=== PATIENT | female | born 1995 | race Two or more races ===

== ENCOUNTER 2017-11-28 10:01 | Emergency (ER) | payer SELFPAY ==
[~2017-11-28] VITALS: Ht 157.5 cm; Wt 59.4 kg
[~2017-11-28 10:01] MED LIST: FAMO-63 PO; NITR100C62 PO; ONDA8TAB12 PO
[2017-11-28 10:25] VITALS: BP 157/102
[2017-11-28 11:01] LABS: BASO # 0.1 x10^3/uL (0.0-0.2); BASO % 1 % (0-3); EOS # 0.1 x10^3/uL (0.0-0.7); EOS % 1 % (0-3); HEMOGLOBIN 13.4 g/dL (12.0-15.5); LYMPH % 15 % (24-48); MEAN CORPUSCULAR HEMOGLOBIN 28 pg (25-35); MEAN CORPUSCULAR HGB CONC 33 g/dL (31-37); MEAN CORPUSCULAR VOLUME 84 fL (79-100); MONO # 0.5 x10^3/uL (0.0-1.1); MONO % 8 % (0-9); NEUT % 75 % (31-73); PLATELET COUNT 254 x10^3/uL (140-400); RED BLOOD COUNT 4.87 x10^6/uL (3.50-5.40); RED CELL DISTRIBUTION WIDTH 15.3 % (11.5-14.5); WHITE BLOOD COUNT 6.6 x10^3/uL (4.0-11.0)
[2017-11-28 11:12] LABS: ALBUMIN 3.9 g/dL (3.4-5.0); CALCIUM 9.1 mg/dL (8.5-10.1); GFR 69.3; POTASSIUM 3.8 mmol/L (3.5-5.1); TOTAL BILIRUBIN 1.7 mg/dL (0.2-1.0); TOTAL PROTEIN 7.9 g/dL (6.4-8.2)
[2017-11-28 11:23] LABS: BARBITURATES NEG (NEG); BENZODIAZEPINES NEG (NEG); CANNABINOIDS POS (NEG); COCAINE NEG (NEG); METHADONE NEG (NEG); OPIATES NEG (NEG); PHENCYCLIDINE NEG (NEG)
[2017-11-28 11:24] LABS: AMPHETAMINE/METHAMPHETAMINE NEG (NEG)
[2017-11-28 11:25] LABS: BILIRUBIN,URINE NEG (NEG); CLARITY,URINE CLOUDY; COLOR,URINE YELLOW; GLUCOSE,URINE NEG (NEG); NITRITE,URINE POS (NEG); UROBILINOGEN,URINE 0.2 mg/dL (0.2 mg/dL)
[2017-11-28] MEDS ORDERED: ACETAMINOPHEN 500 MG TABLET PO ONE (11:30)
--- NOTE | 2017-11-28 12:28 | RAD ---
Examination: Ultrasound abdomen complete HISTORY: History of upper abdominal pain, nausea, vomiting COMPARISON: None available FINDINGS: The visualized pancreas grossly appears unremarkable. The right lobe of the liver measures 13.2 cm. There is mild thickened appearance of the gallbladder wall probably due to contracted appearance. The gallbladder is contracted as patient ate recently. No evidence of gallstones. No ultrasonographic evidence of Canela's sign. The common bile duct measures 3.1 mm in diameter. The right kidney measures 9.5 cm in length. Multiple cysts identified in the right kidney the largest measuring 1.8 cm. The 1.4 cm cystic structure in the right kidney demonstrates few echogenicities within probably debris. The left kidney measures 12.1 cm in length. The visualized spleen, aorta, IVC is within normal limits. IMPRESSION: 1. No evidence of gallstones. There is somewhat thickened appearance of the gallbladder wall probably due to contracted appearance the gallbladder due to recent non NPO status. 2. Cystic structures identified in the right kidney the largest measuring 1.8 cm likely cyst. The 1.4 cm cystic structure demonstrates echogenicity within probably debris within the cyst. Close interval follow-up examination is recommended to document stability. Electronically signed by: Ace Pretty MD (11/28/2017 12:25 PM) [id number]
[2017-11-28] MEDS ORDERED: RANI150T21 PO (12:35)
[2017-11-28] MEDS ORDERED: CIPR250T30 PO (12:35)
--- NOTE | 2017-11-28 12:35 | PHYS DOC ---
Past History Past Medical History: Hypertension Past Surgical History: No Surgical History Alcohol Use: Rarely Drug Use: Marijuana Adult General Chief Complaint Chief Complaint: ABDOMINAL PAIN HPI HPI Patient is a 22 year old female who presents with complaining of intermittent episodes of abdominal pain for 17 months after she had her baby in June 2016. She states she did 2 or 3 episodes of upper abdominal pain each month that usually last for couple hours and associated with nausea and sometimes vomiting. Patient states the pain is not related to food or activity. Patient states she had 1 episodes of vomiting today with string of fresh blood that was new for her. Patient denies , urinary symptoms, fever and chills, loss of weight. Review of Systems Review of Systems Constitutional: Denies fever or chills [] Eyes: Denies change in visual acuity, redness, or eye pain [] HENT: Denies nasal congestion or sore throat [] Respiratory: Denies cough or shortness of breath [] Cardiovascular: No additional information not addressed in HPI [] GI: Reports abdominal pain, nausea, vomiting, denies bloody stools or diarrhea [ ] : Denies dysuria or hematuria [] Musculoskeletal: Denies back pain or joint pain [] Integument: Denies rash or skin lesions [] Neurologic: Denies headache, focal weakness or sensory changes [] Endocrine: Denies polyuria or polydipsia [] All other systems were reviewed and found to be within normal limits, except as documented in this note. Current Medications Current Medications Current Medications Medications (Trade) Dose Ordered Sig/Holly Start Time Stop Time Status Last Admin Dose Admin Acetaminophen (Tylenol) 1,000 mg 1X ONCE 11/28/17 11:30 11/28/17 11:31 DC 11/28/17 11:20 1,000 MG Allergies Allergies Allergies Coded Allergies Type Severity Reaction Last Updated Verified No Known Allergies Allergy Unknown 10/19/15 Yes Physical Exam Physical Exam Constitutional: Well developed, well nourished, no acute distress, non-toxic appearance. [] HENT: Normocephalic, atraumatic, bilateral external ears normal, oropharynx moist, no oral exudates, nose normal. [] Eyes: PERRLA, EOMI, conjunctiva normal, no discharge. [] Neck: Normal range of motion, no tenderness, supple, no stridor. [] Cardiovascular:Heart rate regular rhythm, no murmur [] Lungs & Thorax: Bilateral breath sounds clear to auscultation [] Abdomen: Bowel sounds normal, soft, no tenderness, no masses, no pulsatile masses. [] Skin: Warm, dry, no erythema, no rash. [] Back: No tenderness, no CVA tenderness. [] Extremities: No tenderness, no cyanosis, no clubbing, ROM intact, no edema. [] Neurologic: Alert and oriented X 3, normal motor function, normal sensory function, no focal deficits noted. [] Psychologic: Affect normal, judgement normal, mood normal. [] Current Patient Data Vital Signs Vital Signs Date Time Temp Pulse Resp B/P (MAP) Pulse Ox O2 Delivery O2 Flow Rate FiO2 11/28/17 10:25 98.3 109 16 97 Room Air Lab Results Laboratory Tests Test 11/28/17 10:07 11/28/17 10:09 11/28/17 10:30 11/28/17 10:47 Urine Collection Type Unknown Urine Color Yellow Urine Clarity Cloudy Urine pH 6.0 Urine Specific [place] >=1.030 Urine Protein 100 mg/dl (NEG-TRACE) Urine Glucose (UA) Neg mg/dL (NEG) Urine Ketones (Stick) Neg mg/dL (NEG) Urine Blood Mod (NEG) Urine Nitrite Pos (NEG) Urine Bilirubin Neg (NEG) Urine Urobilinogen Dipstick 0.2 mg/dL (0.2 mg/dL) Urine Leukocyte Esterase Small (NEG) POC Urine HCG, Qualitative hcg negative (Negative) Urine Opiates Screen Neg (NEG) Urine Methadone Screen Neg (NEG) Urine Barbiturates Neg (NEG) Urine Phencyclidine Screen Neg (NEG) Urine Amphetamine/Methamphetamine Neg (NEG) Urine Benzodiazepines Screen Neg (NEG) Urine Cocaine Screen Neg (NEG) Urine Cannabinoids Screen Pos (NEG) Urine Ethyl Alcohol Neg (NEG) White Blood Count 6.6 x10^3/uL (4.0-11.0) Red Blood Count 4.87 x10^6/uL (3.50-5.40) Hemoglobin 13.4 g/dL (12.0-15.5) Hematocrit 41.0 % (36.0-47.0) Mean Corpuscular Volume 84 fL (79-100) Mean Corpuscular Hemoglobin 28 pg (25-35) Mean Corpuscular Hemoglobin Concent 33 g/dL (31-37) Red Cell Distribution Width 15.3 % (11.5-14.5) H Platelet Count 254 x10^3/uL (140-400) Neutrophils (%) (Auto) 75 % (31-73) H Lymphocytes (%) (Auto) 15 % (24-48) L Monocytes (%) (Auto) 8 % (0-9) Eosinophils (%) (Auto) 1 % (0-3) Basophils (%) (Auto) 1 % (0-3) Neutrophils # (Auto) 5.0 x10^3uL (1.8-7.7) Lymphocytes # (Auto) 1.0 x10^3/uL (1.0-4.8) Monocytes # (Auto) 0.5 x10^3/uL (0.0-1.1) Eosinophils # (Auto) 0.1 x10^3/uL (0.0-0.7) Basophils # (Auto) 0.1 x10^3/uL (0.0-0.2) Sodium Level 142 mmol/L (136-145) Potassium Level 3.8 mmol/L (3.5-5.1) Chloride Level 105 mmol/L (98-107) Carbon Dioxide Level 31 mmol/L (21-32) Anion Gap 6 (6-14) Blood Urea Nitrogen 13 mg/dL (7-20) Creatinine 1.0 mg/dL (0.6-1.0) Estimated GFR (Cockcroft-Gault) 69.3 BUN/Creatinine Ratio 13 (6-20) Glucose Level 45 mg/dL (70-99) L Calcium Level 9.1 mg/dL (8.5-10.1) Total Bilirubin 1.7 mg/dL (0.2-1.0) H Aspartate Amino Transferase (AST) 18 U/L (15-37) Alanine Aminotransferase (ALT) 22 U/L (14-59) Alkaline Phosphatase 78 U/L (46-116) Total Protein 7.9 g/dL (6.4-8.2) Albumin 3.9 g/dL (3.4-5.0) Albumin/Globulin Ratio 1.0 (1.0-1.7) Lipase 130 U/L (73-393) EKG EKG [] Radiology/Procedures Radiology/Procedures [] Course & Med Decision Making Course & Med Decision Making Pertinent Labs and Imaging studies reviewed. (See chart for details) discharge: I've spoken with the patient and/or caregivers. I've explained the patient's condition, diagnosis and treatment plan based on information available to me at this time. I've answered the patient's and/or caregivers questions and addressed any concerns. The patient and/or caregivers have a good understanding the patient's diagnosis, condition and treatment plan as can be expected at this point. Vital signs have been stabilized. The patient's condition is stable for discharge from the emergency department. The patient will pursue further outpatient evaluation with her primary care provider or other designated consulting physician as outlined in the discharge instructions. Patient and/or caregivers are agreeable to this plan of care and follow-up instructions have been explained in detail. The patient and/or caregivers have received these instructions in written format and expressed understanding of these discharge instructions. The patient and her caregivers are aware that if any significant change in condition or worsening of symptoms should prompt him to immediately return to this of the closest emergency department. If an emergent department is not readily available I would encourage him to call 911. Dragon Disclaimer Dragon Disclaimer This electronic medical record was generated, in whole or in part, using a voice recognition dictation system. Departure Departure: Impression: Primary Impression: Chronic abdominal pain Additional Impressions: UTI (urinary tract infection) Kidney cysts Disposition: HOME, SELF-CARE (at 12:30) Condition: STABLE Referrals: PCP,NO (PCP) RADHA AGUILERA Patient Instructions: Abdominal Pain, Urinary Tract Infection Additional Instructions: Drink plenty of liquids Follow-up with your primary care physician in 3-5 days Return to ER if not getting better Lap with urology physician in 2 or 3 days Scripts Ranitidine Hcl (ZANTAC) 150 Mg Tablet 1 TAB PO BID, #20 TAB 0 Refills Prov: SHAUN CROFT MD 11/28/17 Ciprofloxacin Hcl (CIPRO) 250 Mg Tablet 1 TAB PO BID, #6 TAB Prov: SHAUN CROFT MD 11/28/17 Problem Qualifiers SHAUN CROFT MD Nov 28, 2017 12:35
== END 2017-11-28 12:42 | disposition home or self-care (01) ==
LOC: ER 10:01
DX: N39.0 Urinary tract infection, site not specified (principal); G89.29 Other chronic pain; R10.10 Upper abdominal pain, unspecified; N28.1 Cyst of kidney, acquired; I10 Essential (primary) hypertension
CPT/HCPCS: 36415; 76700; 80053; 80307; 81003; 81025; 83690; 85025; 87086; 87186; 99285-25; G0479

== ENCOUNTER 2018-07-24 08:44 | Emergency (ER) | payer MEDICAID, OTHER ==
[~2018-07-24] VITALS: Ht 157.5 cm; Wt 59.4 kg
[~2018-07-24 08:44] MED LIST changes: +CIPR250T30 PO; +RANI150T21 PO
--- NOTE | 2018-07-24 09:28 | PHYS DOC ---
Past History Past Medical History: Hypertension Past Surgical History: No Surgical History Alcohol Use: Rarely Drug Use: Marijuana Adult General Chief Complaint Chief Complaint: BREAST PROBLEM HPI HPI Patient is a 22 year old female who presents with complaint of a lump to the left breast. Patient states that she noticed a lump 2 days ago. Denies any associated pain, swelling, redness, or rash. Patient not currently breast- feeding. Denies previous history of similar symptoms. States that the lump is about the size of her fingertip and is hard to touch. States it is mobile. Has not taking medications. Patient states that she made a doctor's appointment to be seen next week but states that she wanted to have this evaluated today which is why she came to the emergency department. No associated fever. Denies family history of breast cancer. Review of Systems Review of Systems Constitutional: Denies fever or chills [] Eyes: Denies change in visual acuity, redness, or eye pain [] HENT: Denies nasal congestion or sore throat [] Respiratory: Denies cough or shortness of breath [] Cardiovascular: Denies chest pain or edema[] GI: Denies abdominal pain, nausea, vomiting, bloody stools or diarrhea [] : Left breast mass, denies dysuria or hematuria [] Musculoskeletal: Denies back pain or joint pain [] Integument: Denies rash or skin lesions [] Neurologic: Denies headache, focal weakness or sensory changes [] Endocrine: Denies polyuria or polydipsia [] All other systems were reviewed and found to be within normal limits, except as documented in this note. Allergies Allergies Allergies Coded Allergies Type Severity Reaction Last Updated Verified No Known Allergies Allergy Unknown 10/19/15 Yes Physical Exam Physical Exam Constitutional: Well developed, well nourished, no acute distress, non-toxic appearance. [] HENT: Normocephalic, atraumatic, bilateral external ears normal, oropharynx moist, no oral exudates, nose normal. [] Eyes: PERRLA, EOMI, conjunctiva normal, no discharge. [] Neck: Normal range of motion, no tenderness, supple, no stridor. [] Cardiovascular:Heart rate regular rhythm, no murmur [] Lungs & Thorax: Bilateral breath sounds clear to auscultation Breast exam: Breasts appear symmetric, 1.5 cm nodular mass at 6 o'clock position of left aerial below nipple, nontender to palpation, no skin dimpling or erythema present, no palpable axillary lymphadenopathy.[] Abdomen: Bowel sounds normal, soft, no tenderness, no masses, no pulsatile masses. [] Skin: Warm, dry, no erythema, no rash. [] Back: No tenderness, no CVA tenderness. [] Extremities: No tenderness, no cyanosis, no clubbing, ROM intact, no edema. [] Neurologic: Alert and oriented X 3, normal motor function, normal sensory function, no focal deficits noted. [] Current Patient Data Vital Signs Blood pressure 146/112, pulse 84, SPO2 97% on room air. Lab Results Not performed EKG EKG Not performed[] Radiology/Procedures Radiology/Procedures Not performed[] Course & Med Decision Making Course & Med Decision Making Pertinent Labs and Imaging studies reviewed. (See chart for details) Patient has a small nodular breast mass. This may be an obstructed mammary duct or ductal cyst. This does not appear to be acutely infected and patient is otherwise in no acute distress. Recommended use of warm compresses to the affected area 3 times daily over the next 5 days. Advised to keep appointment with patient's doctor next week to have this reevaluated and to assess need for outpatient imaging such as breast ultrasound and/or mammography. Blood pressure was found to be elevated in the emergency department. This is likely due to st ress reaction the patient does have documented history of hypertension. Advised to have this rechecked by primary doctor as patient is not currently having any active symptoms of critical hypertension. Advised return to the emergency department for any worsening symptoms. Patient was understanding and in agreement with treatment plan.[] Dragon Disclaimer Dragon Disclaimer This electronic medical record was generated, in whole or in part, using a voice recognition dictation system. Departure Departure: Impression: Primary Impression: Breast mass in female Disposition: 01 HOME, SELF-CARE Condition: STABLE Referrals: PCP,NO (PCP) Patient Instructions: Breast Self-Exam, [id number] Additional Instructions: Your examination today shows a small mass underneath the areola, or colored part, of your breast just below the nipple. This is thought to be due to a possible obstructed mammary duct. There does not appear to be any infection at this time. Apply warm compresses to the affected area 3 times a day for the next 5 days. If this does not resolve, it is recommended that you keep your appointment with your doctor as this may need to have further outpatient imaging. Return to the emergency department for any worsening symptoms. LINDA PEREZ MD July 24, 2018 09:28
[2018-07-24 09:35] VITALS: BP 146/112
== END 2018-07-24 09:35 | disposition home or self-care (01) ==
LOC: ER 08:44
DX: N63.42 Unspecified lump in left breast, subareolar (principal); I10 Essential (primary) hypertension
CPT/HCPCS: 99281

== ENCOUNTER 2018-08-10 15:44 | Emergency (ER) | payer OTHER ==
[~2018-08-10] VITALS: Ht 157.5 cm; Wt 59.4 kg
[~2018-08-10 15:44] MED LIST changes: +RANI-376 PO; -RANI150T21 PO
--- NOTE | 2018-08-10 16:36 | PHYS DOC ---
Past History Past Medical History: No Pertinent History Past Surgical History: No Surgical History Alcohol Use: Occasionally Drug Use: Marijuana Adult General Chief Complaint Chief Complaint: HEADACHE HPI HPI Patient is a 22-year-old female presents with right-sided headache, light sensitivity, and slightly blurred vision that started this morning. She has a history of similar headaches previously without any formal diagnosis for these. No relief with [id number] acetaminophen. She did have 2 episodes of nausea and vomiting this morning. No blood in the emesis. Denies any fever. Denies any chest pain. Not worst headache of life. Pain is moderate to severe in intensity. She also noted that her blood pressure was elevated with the discomfort. She does have a family history of high blood pressure. She has no personal history of blood pressure issues other than it "runs high."[] Review of Systems Review of Systems Constitutional: Denies fever or chills [] Eyes: Denies change in visual acuity, redness, or eye pain [] HENT: Denies nasal congestion or sore throat [] Respiratory: Denies cough or shortness of breath [] Cardiovascular: No chest pain or palpitations[] GI: Denies abdominal pain, nausea, vomiting, bloody stools or diarrhea [] : Denies dysuria or hematuria [] Musculoskeletal: Denies back pain or joint pain [] Integument: Denies rash or skin lesions [] Neurologic: Denies focal weakness or sensory changes [] Endocrine: Denies polyuria or polydipsia [] All other systems were reviewed and found to be within normal limits, except as documented in this note. Allergies Allergies Allergies Coded Allergies Type Severity Reaction Last Updated Verified No Known Allergies Allergy Unknown 10/19/15 Yes Physical Exam Physical Exam Constitutional: Well developed, well nourished, mild discomfort, non-toxic appearance. [] HENT: Normocephalic, atraumatic, bilateral external ears normal, oropharynx moist, no oral exudates, nose normal. [] Eyes: PERRLA, EOMI, conjunctiva normal, no discharge. [] Neck: Normal range of motion, no tenderness, supple, no stridor. [] Cardiovascular:Heart rate regular rhythm, no murmur [] Lungs & Thorax: Bilateral breath sounds clear to auscultation [] Abdomen: Not examined[] Skin: Warm, dry, no erythema, no rash. [] Back: No tenderness, no CVA tenderness. [] Extremities: No tenderness, no cyanosis, no clubbing, ROM intact, no edema. [] Neurologic: Alert and oriented X 3, normal motor function, normal sensory function, no focal deficits noted. Normal rapid repetitive and alternating movements, normal gait [] Psychologic: Affect normal, judgement normal, mood normal. [] Current Patient Data Vital Signs Vital Signs Date Time Temp Pulse Resp B/P (MAP) Pulse Ox O2 Delivery O2 Flow Rate FiO2 08/10/18 15:59 97.8 79 18 99 Room Air EKG EKG [] Radiology/Procedures Radiology/Procedures [] Course & Med Decision Making Course & Med Decision Making Pertinent Labs and Imaging studies reviewed. (See chart for details) ED course: Patient arrived, was placed in bed, and tolerated exam well. She achieved significant pain relief with the medications administered. She was discharged in improved condition with a diesel truck driver present. Medical decision-making: Believe this patient to have migraines. There is no evidence of meningitis, encephalitis, subarachnoid hemorrhage, or any other significant pathology.[] Dragon Disclaimer Dragon Disclaimer This electronic medical record was generated, in whole or in part, using a voice recognition dictation system. Departure Departure: Impression: Primary Impression: Headache Disposition: HOME, SELF-CARE Condition: IMPROVED Referrals: PCPBASIA (PCP) Patient Instructions: General Headache Without Cause, Migraine Headache Additional Instructions: Follow-up with your regular doctor in 2 days. If you do not have regular doctor list of local clinics will be provided for you. At the onset of your next headache try 1/4 teaspoon of brennen dissolved in water or apple juice. If that fails take the medications prescribed. Return to the ER if worsening pain, unable to tolerate liquids, or any other concerns. Scripts Metoclopramide Hcl (REGLAN) 10 Mg Tablet 10 MG PO QID for nausea and vomiting, #30 TAB Prov: NICKOLAS COTTO DO 08/10/18 Meloxicam (MELOXICAM) 7.5 Mg Tablet 7.5 MG PO DAILY for PAIN, #20 TAB Prov: NICKOLAS COTTO DO 08/10/18 Problem Qualifiers Primary Impression: Headache Headache type: unspecified Headache chronicity pattern: episodic headache Intractability: not intractable Qualified Codes: R51 - Headache NICKOLAS COTTO DO Aug 10, 2018 16:36
[2018-08-10] MEDS ORDERED: diphenhydrAMINE 50 MG/ML VIAL IM ONE (17:10)
[2018-08-10] MEDS ORDERED: METOCLOPRAMIDE HCL 10 MG/2 ML VIAL. IM ONE (17:10)
[2018-08-10] MEDS ORDERED: KETOROLAC 15 MG/ML VIAL. IM ONE (17:10)
[2018-08-10] MEDS ORDERED: MELO7.5T29 PO (17:50)
[2018-08-10] MEDS ORDERED: METO10TA81 PO (17:50)
[2018-08-10 18:00] VITALS: BP 154/88
== END 2018-08-10 18:00 | disposition home or self-care (01) ==
LOC: ER 15:44
DX: R51 Headache (principal); R11.2 Nausea with vomiting, unspecified
CPT/HCPCS: 81025; 96372; 99284; J1200; J1885; J2765

== ENCOUNTER 2018-09-23 16:03 | Emergency (ER) | payer SELFPAY ==
[~2018-09-23] VITALS: Ht 157.5 cm; Wt 62.3 kg
[~2018-09-23 16:03] MED LIST changes: +MELO7.5T29 PO; +METO10TA81 PO
--- NOTE | 2018-09-23 17:04 | PHYS DOC ---
Past History Past Medical History: No Pertinent History Past Surgical History: No Surgical History Smoking: Cigarettes Alcohol Use: Occasionally Additional Alcohol Information: drank last weekend Drug Use: Marijuana Social History Narrative: last 2 weeks ago Adult General Chief Complaint Chief Complaint: VAGINAL PROBLEM HPI HPI Patient is a 22-year-old female presents with possible retained condom. Patient and her partner were having sexual intercourse yesterday. Partner pulled out and condom was no longer present. Patient denies any vaginal bleeding or discharge. No nausea or vomiting.[] Review of Systems Review of Systems Constitutional: Denies fever or chills [] Eyes: Denies change in visual acuity, redness, or eye pain [] HENT: Denies nasal congestion or sore throat [] Respiratory: Denies cough or shortness of breath [] Cardiovascular: No chest pain or palpitations[] GI: Denies abdominal pain, nausea, vomiting, bloody stools or diarrhea [] : Denies dysuria or hematuria [] Musculoskeletal: Denies back pain or joint pain [] Integument: Denies rash or skin lesions [] Neurologic: Denies headache, focal weakness or sensory changes [] Endocrine: Denies polyuria or polydipsia [] All other systems were reviewed and found to be within normal limits, except as documented in this note. Allergies Allergies Allergies Coded Allergies Type Severity Reaction Last Updated Verified No Known Allergies Allergy Unknown 10/19/15 Yes Physical Exam Physical Exam Constitutional: Well developed, well nourished, no acute distress, non-toxic appearance. [] HENT: Normocephalic, atraumatic, bilateral external ears normal, oropharynx moist, no oral exudates, nose normal. [] Eyes: PERRLA, EOMI, conjunctiva normal, no discharge. [] Neck: Normal range of motion, no tenderness, supple, no stridor. [] Cardiovascular:Heart rate regular rhythm, no murmur [] Lungs & Thorax: Bilateral breath sounds clear to auscultation [] Abdomen: Bowel sounds normal, soft, no tenderness, no masses, no pulsatile masses. Pelvic exam performed with rn mental health: External genitalia: Normal external genitalia, [place]'s glands, urethra, and Bartholin's. Vaginal vault condom is found within the vaginal vault. There is no other bleeding or discharge or lesions noted. The condom was removed utilizing forceps. Cervix: Parous os, no cervical motion tenderness[] Skin: Warm, dry, no erythema, no rash. [] Back: No tenderness, no CVA tenderness. [] Extremities: No tenderness, no cyanosis, no clubbing, ROM intact, no edema. [] Neurologic: Alert and oriented X 3, normal motor function, normal sensory function, no focal deficits noted. [] Psychologic: Affect normal, judgement normal, mood normal. [] Current Patient Data Vital Signs Vital Signs Date Time Temp Pulse Resp B/P (MAP) Pulse Ox O2 Delivery O2 Flow Rate FiO2 09/23/18 16:10 98.9 108 18 99 Room Air EKG EKG [] Radiology/Procedures Radiology/Procedures [] Course & Med Decision Making Course & Med Decision Making Pertinent Labs and Imaging studies reviewed. (See chart for details) ED course: Patient arrived, was placed in bed, and tolerated exam well. The vaginal foreign body was removed without any complications. She was discharged in improved condition. Medical decision making: Retained foreign body, no evidence of toxic shock syndrome.[] Dragon Disclaimer Dragon Disclaimer This electronic medical record was generated, in whole or in part, using a voice recognition dictation system. Departure Departure: Impression: Primary Impression: Vaginal foreign body Disposition: HOME, SELF-CARE Condition: IMPROVED Referrals: PCP,BASIA (PCP) Patient Instructions: Vaginal Foreign Body-Brief Additional Instructions: Follow-up with your regular doctor in 2 days. Return to the ER if worsening pain, pain when urinating, bleeding, or any other concerns. Problem Qualifiers Primary Impression: Vaginal foreign body Encounter type: initial encounter Qualified Codes: T19.2XXA - Foreign body in vulva and vagina, initial encounter NICKOLAS COTTO DO Sep 23, 2018 17:04
[2018-09-23 17:55] VITALS: BP 168/95
[2018-09-23 18:17] LABS: BILIRUBIN,URINE NEG (NEG); CLARITY,URINE HAZY; COLOR,URINE YELLOW; GLUCOSE,URINE NEG (NEG); NITRITE,URINE NEG (NEG); UROBILINOGEN,URINE 0.2 mg/dL (0.2 mg/dL)
== END 2018-09-23 17:58 | disposition home or self-care (01) ==
LOC: ER 16:03
DX: T19.2XXA Foreign body in vulva and vagina, initial encounter (principal); F17.210 Nicotine dependence, cigarettes, uncomplicated; X58.XXXA Exposure to other specified factors, initial encounter; Y93.89 Activity, other specified; Y92.89 Other specified places as the place of occurrence of the external cause; Y99.8 Other external cause status
CPT/HCPCS: 81003; 81025; 99284

== ENCOUNTER 2018-09-27 10:17 | Emergency (ER) | payer SELFPAY ==
[~2018-09-27] VITALS: Ht 157.5 cm; Wt 60.8 kg
[2018-09-27 10:20] VITALS: BP 137/88
[2018-09-27] MEDS ORDERED: CEPH-264 PO (10:49)
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
== END 2018-09-27 10:52 | disposition home or self-care (01) ==
LOC: ER 10:17
DX: L03.011 Cellulitis of right finger (principal); F17.210 Nicotine dependence, cigarettes, uncomplicated
CPT/HCPCS: 99283

== ENCOUNTER 2018-11-25 15:32 | Emergency (ER) | payer SELFPAY ==
[~2018-11-25] VITALS: Ht 157.5 cm; Wt 64.9 kg
[~2018-11-25 15:32] MED LIST changes: +CEPH-264 PO
[2018-11-25] MEDS ORDERED: ACETAMINOPHEN 500 MG TABLET PO ONE (15:45)
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
--- NOTE | 2018-11-25 16:05 | EKG ---
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
[2018-11-25] MEDS ORDERED: DIPHTH,PERTUSS(ACELL),TET TOX 0.5 ML DISP.SYRIN. VAX IM ONE (16:15)
--- NOTE | 2018-11-25 16:18 | RAD ---
CT HEAD WO CONTRAST dated 11/25/2018 3:44 PM. Comparison: None. Clinical Indication: Pain. PAIN AFTER INJURY. Technical factors: Contiguous 5 mm axial images of the head were obtained from the skull base to the vertex. No contrast was administered. One or more of the following individualized dose reduction techniques were utilized for this examination: Automated exposure control, Adjustment of the mA and/or kV according to patient size, Use of iterative reconstruction technique. Findings: Ventricles and sulci are within normal limits for age. No evidence of ventricular shift or mass effect. Brain parenchyma is of normal attenuation. There is no evidence of hemorrhage or extra-axial collection. Focal soft tissue swelling over the left frontal bone. No underlying acute fracture. The visualized paranasal sinuses and mastoid air cells are clear.. Impression: 1. No evidence of acute intracranial hemorrhage or mass. 2. Left frontal soft tissue swelling with no evidence of underlying acute fracture. Electronically signed by: Dmitry Hensley MD (11/25/2018 4:15 PM) [facility]
[2018-11-25 16:40] VITALS: BP 159/114
== END 2018-11-25 16:40 | disposition home or self-care (01) ==
LOC: ER 15:32
DX: S00.83XA Contusion of other part of head, initial encounter (principal); I10 Essential (primary) hypertension; R42 Dizziness and giddiness; F17.210 Nicotine dependence, cigarettes, uncomplicated; Y04.0XXA Assault by unarmed brawl or fight, initial encounter; Y93.89 Activity, other specified; Y92.89 Other specified places as the place of occurrence of the external cause; Y99.8 Other external cause status
CPT/HCPCS: 70450; 90471; 90715; 93005; 99284-25

== ENCOUNTER 2019-07-29 18:04 | Emergency (ER) | payer OTHER ==
[~2019-07-29] VITALS: Ht 157.5 cm; Wt 61.7 kg
[2019-07-29] MEDS ORDERED: IV NORMAL SALINE 1,000ML 1,000 ML IV ONE (18:30)
[2019-07-29] MEDS ORDERED: FAMOTIDINE 20 MG/2 ML VIAL IVP ONE (18:30)
[2019-07-29] MEDS ORDERED: ONDANSETRON PF 4 MG/2 ML VIAL. IV ONE (18:30)
[2019-07-29] MEDS ORDERED: CONTRAST GIVEN MC PRN (18:45)
[2019-07-29] MEDS ORDERED: IOHEXOL 300 MG/ML 75 ML VIAL. IV ONE (18:45)
[2019-07-29 18:46] LABS: BILIRUBIN,URINE NEG (NEG); CLARITY,URINE CLEAR; COLOR,URINE YELLOW; GLUCOSE,URINE NEG (NEG); NITRITE,URINE NEG (NEG); UROBILINOGEN,URINE 0.2 mg/dL (0.2 mg/dL)
--- NOTE | 2019-07-29 18:50 | PHYS DOC ---
Past History Past Medical History: Hypertension Additional Past Medical Histor: reports " I don't take medications" Past Surgical History: No Surgical History Smoking: Cigarettes Alcohol Use: None Drug Use: Marijuana General Adult EDM: Chief Complaint: ABDOMINAL PAIN HPI: HPI: Patient is a 23-year-old female with a history of hypertension who states that she has had about a 5-hour history of abdominal discomfort. She states it radiates across her upper abdomen is squeezing in nature. She states the pain is 10 out of 10. She denies any melena or hematemesis. She denies any fever chills or sweats. She says she has not had anything alcoholic to drink in a few days. She states she has been unable to hold any liquids down at all for the last couple of days. [] Review of Systems: Review of Systems: Constitutional: Denies fever or chills Eyes: Denies change in visual acuity HENT: Denies nasal congestion or sore throat Respiratory: Denies cough or shortness of breath Cardiovascular: Denies chest pain or edema GI: Per HPI : Denies dysuria Musculoskeletal: Denies back pain or joint pain Integument: Denies rash Neurologic: Denies headache, focal weakness or sensory changes Endocrine: Denies polyuria or polydipsia Lymphatic: Denies swollen glands Psychiatric: Denies depression or anxiety Heart Score: Risk Factors: Risk Factors: DM, Current or recent (<one month) smoker, HTN, HLP, family history of CAD, obesity. Risk Scores: Score 0 - 3: 2.5% MACE over next 6 weeks - Discharge Home Score 4 - 6: 20.3% MACE over next 6 weeks - Admit for Clinical Observation Score 7 - 10: 72.7% MACE over next 6 weeks - Early Invasive Strategies Current Medications: Current Meds: Current Medications Medications (Trade) Dose Ordered Sig/Holly Start Time Stop Time Status Last Admin Dose Admin Famotidine (Pepcid Vial) 20 mg 1X ONCE 07/29/19 18:30 07/29/19 18:31 DC 07/29/19 18:43 20 MG Fentanyl Citrate (Fentanyl 2ml Vial) 50 mcg 1X ONCE 07/29/19 18:30 07/29/19 18:31 DC Info (Do NOT chart on this entry -- for MONITORING) 1 each PRN DAILY PRN 07/29/19 18:45 07/31/19 18:44 Iohexol (Omnipaque 300 Mg/ml) 75 ml 1X ONCE 07/29/19 18:45 07/29/19 18:46 DC Ondansetron HCl (Zofran) 8 mg 1X ONCE 07/29/19 18:30 07/29/19 18:31 DC 07/29/19 18:41 8 MG Sodium Chloride 1,000 ml @ 1,000 mls/hr 1X ONCE 07/29/19 18:30 07/29/19 19:29 07/29/19 18:40 1,000 MLS/HR Allergies: Allergies: Allergies Coded Allergies Type Severity Reaction Last Updated Verified No Known Allergies Allergy Unknown 10/19/15 Yes Physical Exam: PE: Constitutional: Well developed, well nourished, moderate distress, non-toxic appearance. [] HENT: Normocephalic, atraumatic, bilateral external ears normal, oropharynx moist, no oral exudates, nose normal. [] Eyes: PERRLA, EOMI, conjunctiva normal, no discharge. [] Neck: Normal range of motion, no tenderness, supple, no stridor. [] Cardiovascular:Heart rate regular rhythm, no murmur [] Lungs & Thorax: Bilateral breath sounds clear to auscultation [] Abdomen: Soft tender to palp in the upper abdomen no rebound or guarding. [] Skin: Warm, dry, no erythema, no rash. [] Back: No tenderness, no CVA tenderness. [] Extremities: No tenderness, no cyanosis, no clubbing, ROM intact, no edema. [] Neurologic: Alert and oriented X 3, normal motor function, normal sensory function, no focal deficits noted. [] Psychologic: Very anxious [] Current Patient Data: Vital Signs: Vital Signs Date Time Temp Pulse Resp B/P (MAP) Pulse Ox O2 Delivery O2 Flow Rate FiO2 07/29/19 18:10 98.3 81 20 151/109 (123) 100 Room Air EKG: EKG: [] Radiology/Procedures: Radiology/Procedures: [] Impressions: PROCEDURE: CT ABD PELV W/ IV CONTRST ONLY CT ABD PELV W/ IV CONTRST ONLY History: Abdominal pain, nausea and vomiting Comparison: Abdominal ultrasound 11/28/2017 Technique: After administration of intravenous contrast, helical CT of the abdomen and pelvis was performed from the lung bases through the ischial tuberosities. Coronal and sagittal reconstructions were obtained. 75 mL of Omnipaque 350 were used. One or more of the following dose reduction techniques were utilized: Automated exposure control (AEC), Adjustment of mA and/or kV according to patient size, Use of iterative reconstruction technique such as ASiR, CT scan done according to ALARA and image gently/image wisely Abdomen Findings: The visualized lung bases are clear. The liver, gallbladder, pancreas, spleen, and bilateral adrenal glands are normal. Symmetric renal enhancement. Right superior pole renal cysts, better evaluated on prior abdominal ultrasound. There is no hydronephrosis. The visualized loops of small bowel are normal. The visualized loops of large bowel are normal. There is no evidence of bowel obstruction. Appendix is normal. There is no free fluid. There is no mesenteric or retroperitoneal adenopathy. The abdominal aorta is normal in caliber. Pelvis Findings: Urinary bladder is normal. Uterus is present. Mild pelvic free fluid, probably physiologic. There is no pelvic or inguinal adenopathy. There is no acute bony abnormality. IMPRESSION: No acute findings. Normal caliber bowel. Course & Med Decision Making: Course & Med Decision Making Pertinent Labs and Imaging studies reviewed. (See chart for details) ED course: Evaluation reveals a 23-year-old female with nausea and abdominal pain. Laboratory studies urinalysis and CAT scan were all normal. She was given IV fluids and Zofran during her stay in the department which did help alleviate her symptoms. We will provide her with some Zofran to take at home. Marla Disclaimer: Marla Disclaimer: This electronic medical record was generated, in whole or in part, using a voice recognition dictation system. Departure Departure: Impression: Primary Impression: Abdominal pain Qualified Codes: R10.10 - Upper abdominal pain, unspecified Additional Impression: Nausea and vomiting Qualified Codes: R11.2 - Nausea with vomiting, unspecified Disposition: HOME/RESIDENCE PRIOR TO ADM Condition: STABLE Referrals: PCP,NO (PCP) Patient Instructions: Abdominal Pain (Nonspecific), Nausea, Adult Additional Instructions: Return to the emergency department with any new or concerning symptoms Scripts Ondansetron (ONDANSETRON ODT) 4 Mg Tab.rapdis 1 TAB PO PRN Q6-8HRS for NAUSEA, #16 TAB Prov: CARLOS MCCORMACK DO 07/29/19 CARLOS MCCORMACK DO July 29, 2019 18:50
[2019-07-29 18:54] LABS: BASO # 0.1 x10^3/uL (0.0-0.2); BASO % 1 % (0-3); EOS # 0.1 x10^3/uL (0.0-0.7); EOS % 1 % (0-3); HEMATOCRIT 37.2 % (36.0-47.0); HEMOGLOBIN 11.9 g/dL (12.0-15.5); LYMPH # 1.6 x10^3/uL (1.0-4.8); LYMPH % 15 % (24-48); MEAN CORPUSCULAR HEMOGLOBIN 27 pg (25-35); MEAN CORPUSCULAR HGB CONC 32 g/dL (31-37); MEAN CORPUSCULAR VOLUME 83 fL (79-100); MONO # 0.6 x10^3/uL (0.0-1.1); MONO % 6 % (0-9); NEUT # 8.3 x10^3uL (1.8-7.7); NEUT % 77 % (31-73); PLATELET COUNT 305 x10^3/uL (140-400); RED BLOOD COUNT 4.46 x10^6/uL (3.50-5.40); WHITE BLOOD COUNT 10.7 x10^3/uL (4.0-11.0)
[2019-07-29 18:58] LABS: AMORPHOUS SEDIMENT,UR PRESENT /HPF; BACTERIA,URINE MOD /HPF (0-FEW); RBC,URINE 0 /HPF (0-2); SQUAMOUS EPITHELIAL CELL,UR FEW /LPF; WBC,URINE 0 /HPF (0-4)
[2019-07-29 19:16] LABS: CALCIUM 8.7 mg/dL (8.5-10.1); CREATININE 0.9 mg/dL (0.6-1.0); GFR 77.6; POTASSIUM 3.8 mmol/L (3.5-5.1)
[2019-07-29 19:21] LABS: ALBUMIN 3.8 g/dL (3.4-5.0); ALBUMIN/GLOBULIN RATIO 1.2 (1.0-1.7); TOTAL BILIRUBIN 0.4 mg/dL (0.2-1.0); TOTAL PROTEIN 7.1 g/dL (6.4-8.2)
[2019-07-29 19:28] LABS: U PREG PATIENT NEGATIVE (NEG)
[2019-07-29 19:44] VITALS: BP 151/105
--- NOTE | 2019-07-29 20:01 | RAD ---
CT ABD PELV W/ IV CONTRST ONLY History: Abdominal pain, nausea and vomiting Comparison: Abdominal ultrasound 11/28/2017 Technique: After administration of intravenous contrast, helical CT of the abdomen and pelvis was performed from the lung bases through the ischial tuberosities. Coronal and sagittal reconstructions were obtained. 75 mL of Omnipaque 350 were used. One or more of the following dose reduction techniques were utilized: Automated exposure control (AEC), Adjustment of mA and/or kV according to patient size, Use of iterative reconstruction technique such as ASiR, CT scan done according to ALARA and image gently/image wisely Abdomen Findings: The visualized lung bases are clear. The liver, gallbladder, pancreas, spleen, and bilateral adrenal glands are normal. Symmetric renal enhancement. Right superior pole renal cysts, better evaluated on prior abdominal ultrasound. There is no hydronephrosis. The visualized loops of small bowel are normal. The visualized loops of large bowel are normal. There is no evidence of bowel obstruction. Appendix is normal. There is no free fluid. There is no mesenteric or retroperitoneal adenopathy. The abdominal aorta is normal in caliber. Pelvis Findings: Urinary bladder is normal. Uterus is present. Mild pelvic free fluid, probably physiologic. There is no pelvic or inguinal adenopathy. There is no acute bony abnormality. IMPRESSION: No acute findings. Normal caliber bowel. Electronically signed by: Keith Muñoz MD (07/29/2019 7:58 PM) [id number]
[2019-07-29] MEDS ORDERED: ONDA4TAB12 PO (20:09)
== END 2019-07-29 20:14 | disposition home or self-care (01) ==
LOC: ER 18:04
DX: R10.10 Upper abdominal pain, unspecified (principal); R11.2 Nausea with vomiting, unspecified; I10 Essential (primary) hypertension; F17.210 Nicotine dependence, cigarettes, uncomplicated
CPT/HCPCS: 36415; 74177; 80053; 81001; 81025; 83690; 85025; 87086; 96361; 96374; 96375; 99285; J2405; J3490; Q9967; J7030

== ENCOUNTER 2019-10-26 12:42 | Emergency (ER) | payer OTHER ==
[~2019-10-26] VITALS: Ht 157.5 cm; Wt 65.0 kg
[~2019-10-26 12:42] MED LIST changes: +ONDA4TAB12 PO
[2019-10-26 13:02] VITALS: BP 156/107
[2019-10-26] MEDS ORDERED: KETOROLAC 30 MG/ML VIAL. IVP ONE (13:15)
[2019-10-26] MEDS ORDERED: diphenhydrAMINE 50 MG/ML VIAL IVP ONE (13:15)
[2019-10-26] MEDS ORDERED: METOCLOPRAMIDE HCL 10 MG/2 ML VIAL. IVP ONE (13:15)
[2019-10-26] MEDS ORDERED: IV NORMAL SALINE 1,000ML 1,000 ML IV ONE (13:15)
[2019-10-26 13:33] LABS: BASO # 0.1 x10^3/uL (0.0-0.2); BASO % 1 % (0-3); EOS # 0.1 x10^3/uL (0.0-0.7); EOS % 1 % (0-3); HEMATOCRIT 37.3 % (36.0-47.0); HEMOGLOBIN 12.1 g/dL (12.0-15.5); LYMPH # 1.2 x10^3/uL (1.0-4.8); LYMPH % 13 % (24-48); MEAN CORPUSCULAR HEMOGLOBIN 26 pg (25-35); MEAN CORPUSCULAR HGB CONC 32 g/dL (31-37); MEAN CORPUSCULAR VOLUME 82 fL (79-100); MONO # 0.5 x10^3/uL (0.0-1.1); MONO % 5 % (0-9); NEUT # 7.5 x10^3uL (1.8-7.7); NEUT % 81 % (31-73); PLATELET COUNT 238 x10^3/uL (140-400); RED BLOOD COUNT 4.57 x10^6/uL (3.50-5.40); RED CELL DISTRIBUTION WIDTH 19.9 % (11.5-14.5); WHITE BLOOD COUNT 9.4 x10^3/uL (4.0-11.0)
[2019-10-26 13:38] LABS: BILIRUBIN,URINE NEG (NEG); CLARITY,URINE HAZY; COLOR,URINE YELLOW; GLUCOSE,URINE NEG (NEG); NITRITE,URINE POS (NEG)
[2019-10-26 13:43] LABS: CALCIUM 8.9 mg/dL (8.5-10.1); CREATININE 1.1 mg/dL (0.6-1.0); GFR 61.6; POTASSIUM 3.8 mmol/L (3.5-5.1)
[2019-10-26 13:49] LABS: ALBUMIN/GLOBULIN RATIO 1.1 (1.0-1.7); TOTAL BILIRUBIN 1.6 mg/dL (0.2-1.0); TOTAL PROTEIN 7.8 g/dL (6.4-8.2)
[2019-10-26] MEDS ORDERED: NITR100C62 PO (14:20)
--- NOTE | 2019-10-26 14:21 | PHYS DOC ---
Past History Past Medical History: Hypertension, Migraines Additional Past Medical Histor: reports " I don't take medications" Past Surgical History: No Surgical History Smoking: Cigarettes Alcohol Use: None Drug Use: Marijuana General Adult EDM: Chief Complaint: HEADACHE HPI: HPI: 23-year-old female presents with headache and low back pain. She has a history of migraines. She is on medication for this. Her current pain is the same as her usual migraines. She tells me that last couple of days she has had worsening headaches and now has low back pain. The pain is a deep cramping sensation. She denies any injury or overuse. No history of low back pain. She denies fever or chills. No known COVID-19 exposures. Review of Systems: Review of Systems: Constitutional: Denies fever or chills Eyes: Denies change in visual acuity HENT: Denies nasal congestion or sore throat Respiratory: Denies cough or shortness of breath Cardiovascular: Denies chest pain or edema GI: Denies abdominal pain, nausea, vomiting, bloody stools or diarrhea : Denies dysuria Musculoskeletal: Denies back pain or joint pain Integument: Denies rash Neurologic: Denies headache, focal weakness or sensory changes Endocrine: Denies polyuria or polydipsia Lymphatic: Denies swollen glands Psychiatric: Denies depression or anxiety Heart Score: Risk Factors: Risk Factors: DM, Current or recent (<one month) smoker, HTN, HLP, family history of CAD, obesity. Risk Scores: Score 0 - 3: 2.5% MACE over next 6 weeks - Discharge Home Score 4 - 6: 20.3% MACE over next 6 weeks - Admit for Clinical Observation Score 7 - 10: 72.7% MACE over next 6 weeks - Early Invasive Strategies Current Medications: Current Meds: Current Medications Medications (Trade) Dose Ordered Sig/Holly Start Time Stop Time Status Last Admin Dose Admin Diphenhydramine HCl (Benadryl) 25 mg 1X ONCE 10/26/19 13:15 10/26/19 13:32 DC 10/26/19 13:42 25 MG Ketorolac Tromethamine (Toradol 30mg Vial) 30 mg 1X ONCE 10/26/19 13:15 10/26/19 13:32 DC 10/26/19 13:42 30 MG Metoclopramide HCl (Reglan Vial) 10 mg 1X ONCE 10/26/19 13:15 10/26/19 13:32 DC 10/26/19 13:42 10 MG Sodium Chloride 1,000 ml @ 1,000 mls/hr 1X ONCE 10/26/19 13:15 10/26/19 14:14 10/26/19 13:42 1,000 MLS/HR Allergies: Allergies: Allergies Coded Allergies Type Severity Reaction Last Updated Verified No Known Allergies Allergy Unknown 10/19/15 Yes Physical Exam: PE: Constitutional: Well developed, well nourished, no acute distress, non-toxic appearance. [] HENT: Normocephalic, atraumatic, bilateral external ears normal, oropharynx moist, no oral exudates, nose normal. [] Eyes: PERRLA, EOMI, conjunctiva normal, no discharge. [] Neck: Normal range of motion, no tenderness, supple, no stridor. [] Cardiovascular:Heart rate regular rhythm, no murmur [] Lungs & Thorax: Bilateral breath sounds clear to auscultation [] Abdomen: Bowel sounds normal, soft, no tenderness, no masses, no pulsatile masses. [] Skin: Warm, dry, no erythema, no rash. [] Back: No tenderness, no CVA tenderness. [] Extremities: No tenderness, no cyanosis, no clubbing, ROM intact, no edema. [] Neurologic: Alert and oriented X 3, normal motor function, normal sensory function, no focal deficits noted. [] Psychologic: Affect normal, judgement normal, mood normal. [] Current Patient Data: Labs: Laboratory Tests Test 10/26/19 13:11 10/26/19 13:28 White Blood Count 9.4 x10^3/uL (4.0-11.0) Red Blood Count 4.57 x10^6/uL (3.50-5.40) Hemoglobin 12.1 g/dL (12.0-15.5) Hematocrit 37.3 % (36.0-47.0) Mean Corpuscular Volume 82 fL (79-100) Mean Corpuscular Hemoglobin 26 pg (25-35) Mean Corpuscular Hemoglobin Concent 32 g/dL (31-37) Red Cell Distribution Width 19.9 % (11.5-14.5) H Platelet Count 238 x10^3/uL (140-400) Neutrophils (%) (Auto) 81 % (31-73) H Lymphocytes (%) (Auto) 13 % (24-48) L Monocytes (%) (Auto) 5 % (0-9) Eosinophils (%) (Auto) 1 % (0-3) Basophils (%) (Auto) 1 % (0-3) Neutrophils # (Auto) 7.5 x10^3uL (1.8-7.7) Lymphocytes # (Auto) 1.2 x10^3/uL (1.0-4.8) Monocytes # (Auto) 0.5 x10^3/uL (0.0-1.1) Eosinophils # (Auto) 0.1 x10^3/uL (0.0-0.7) Basophils # (Auto) 0.1 x10^3/uL (0.0-0.2) Urine Collection Type Unknown Urine Color Yellow Urine Clarity Hazy Urine pH 7.0 Urine Specific [place] 1.025 Urine Protein 100 mg/dl (NEG-TRACE) Urine Glucose (UA) Neg mg/dL (NEG) Urine Ketones (Stick) 40 mg/dL (NEG) Urine Blood Trace (NEG) Urine Nitrite Pos (NEG) Urine Bilirubin Neg (NEG) Urine Urobilinogen Dipstick 1.0 mg/dL (0.2 mg/dL) Urine Leukocyte Esterase Trace (NEG) Sodium Level 139 mmol/L (136-145) Potassium Level 3.8 mmol/L (3.5-5.1) Chloride Level 103 mmol/L (98-107) Carbon Dioxide Level 27 mmol/L (21-32) Anion Gap 9 (6-14) Blood Urea Nitrogen 16 mg/dL (7-20) Creatinine 1.1 mg/dL (0.6-1.0) H Estimated GFR (Cockcroft-Gault) 61.6 BUN/Creatinine Ratio 15 (6-20) Glucose Level 124 mg/dL (70-99) H Calcium Level 8.9 mg/dL (8.5-10.1) Total Bilirubin 1.6 mg/dL (0.2-1.0) H Aspartate Amino Transferase (AST) 12 U/L (15-37) L Alanine Aminotransferase (ALT) 12 U/L (14-59) L Alkaline Phosphatase 57 U/L (46-116) Total Protein 7.8 g/dL (6.4-8.2) Albumin 4.0 g/dL (3.4-5.0) Albumin/Globulin Ratio 1.1 (1.0-1.7) POC Urine HCG, Qualitative hcg negative (Negative) Vital Signs: Vital Signs Date Time Temp Pulse Resp B/P (MAP) Pulse Ox O2 Delivery O2 Flow Rate FiO2 10/26/19 13:02 99.9 103 28 156/107 (123) 100 EKG: EKG: [] Radiology/Procedures: Radiology/Procedures: [] Course & Med Decision Making: Course & Med Decision Making Pertinent Labs and Imaging studies reviewed. (See chart for details) The patient's labs are unremarkable. Her urinalysis is significant for UTI. I will treat her with 1 g Rocephin IV and 5 days of Macrobid at home. For her headache she was given 1 L normal saline, 30 mg of Toradol, 10 mg Reglan, 25 mg of Benadryl. We are about to give the patient her Rocephin and she was not in the room. She had pulled out her IV and left on the bed. She left without telling anyone. She is gone AMA. I have printed out her prescription for Macrobid if she happens to come back. [] Arion Disclaimer: Marla Disclaimer: This electronic medical record was generated, in whole or in part, using a voice recognition dictation system. Departure Departure: Impression: Primary Impression: UTI (urinary tract infection) Qualified Codes: N30.01 - Acute cystitis with hematuria Additional Impression: Migraine Disposition: AGAINST MEDICAL ADVICE Condition: STABLE Referrals: PCP,NO (PCP) Patient Instructions: Recurrent Migraine Headache, [id number], Urinary Tract Infection, [id number] Scripts Nitrofurantoin Monohyd/M-Cryst (MACROBID 100 MG CAPSULE) 100 Mg Capsule 1 CAP PO BID for UTI for 5 Days, #10 CAP 0 Refills Prov: KARLY CRUM DO 10/26/19 Justification of Admission: Justification of Admission: Justification of Admission Dx: N/A KARLY CRUM DO Oct 26, 2019 14:21
[2019-10-26] MEDS ORDERED: cefTRIAXone SODIUM 1 GM VIAL ONE (14:45)
[2019-10-26] MEDS ORDERED: IV NORMAL SALINE 50ML 50 ML ONE (14:45)
== END 2019-10-26 15:05 | disposition left against medical advice (07) ==
LOC: ER 12:42
DX: G43.909 Migraine, unspecified, not intractable, without status migrainosus (principal); N30.01 Acute cystitis with hematuria; I10 Essential (primary) hypertension; F17.210 Nicotine dependence, cigarettes, uncomplicated
CPT/HCPCS: 36415; 80053; 81003; 81025; 85025; 96361; 96374; 96375; 99284; J1200; J1885; J2765; J7030

== ENCOUNTER 2020-01-16 15:24 | Emergency (ER) | payer OTHER ==
[~2020-01-16] VITALS: Ht 157.5 cm; Wt 57.3 kg
[2020-01-16 15:30] VITALS: BP 151/107
--- NOTE | 2020-01-16 15:58 | PHYS DOC ---
Past History Past Medical History: Anxiety, Hypertension Additional Past Medical Histor: reports " I don't take medications" Past Surgical History: No Surgical History Smoking: Cigarettes Alcohol Use: Occasionally Drug Use: Marijuana Adult General Chief Complaint Chief Complaint: SUICIDAL IDEATION HPI HPI Patient is a female with history of anxiety, suicidal ideations, hypertension not on medications, who presents to the ED today complaining of suicidal ideation. Patient was talking to the father on the phone, father is in [place] she made comments to the dad she is planning to kill herself with her shaver. The father called EMS who brought her to the ED. she states she is currently suicidal but not as much as she was when she talked to the father. Review of Systems Review of Systems Constitutional: Denies fever or chills [] Eyes: Denies change in visual acuity, redness, or eye pain [] HENT: Denies nasal congestion or sore throat [] Respiratory: Denies cough or shortness of breath [] Cardiovascular: No additional information not addressed in HPI [] GI: Denies abdominal pain, nausea, vomiting, bloody stools or diarrhea [] : Denies dysuria or hematuria [] Musculoskeletal: Denies back pain or joint pain [] Integument: Denies rash or skin lesions [] Neurologic: Denies headache, focal weakness or sensory changes [] Pysch: Reports suicidal ideation All other systems were reviewed and found to be within normal limits, except as documented in this note. Allergies Allergies Allergies Coded Allergies Type Severity Reaction Last Updated Verified No Known Allergies Allergy Unknown 10/19/15 Yes Physical Exam Physical Exam Constitutional: Well developed, well nourished, no acute distress, non-toxic appearance. [] HENT: Normocephalic, atraumatic, bilateral external ears normal, oropharynx moist, no oral exudates, nose normal. [] Eyes: PERRLA, EOMI, conjunctiva normal, no discharge. [] Neck: Normal range of motion, no tenderness, supple, no stridor. [] Cardiovascular:Heart rate regular rhythm, no murmur [] Lungs & Thorax: Bilateral breath sounds clear to auscultation [] Abdomen: Bowel sounds normal, soft, no tenderness, no masses, no pulsatile masses. [] Skin: Warm, dry, no erythema, no rash. [] Back: No tenderness, no CVA tenderness. [] Extremities: No tenderness, no cyanosis, no clubbing, ROM intact, no edema. [] Neurologic: Alert and oriented X 3, normal motor function, normal sensory function, no focal deficits noted. [] Psychologic: Flat affect, tearful, anxious Current Patient Data Vital Signs Vital Signs Date Time Temp Pulse Resp B/P (MAP) Pulse Ox O2 Delivery O2 Flow Rate FiO2 01/16/20 15:30 98.3 86 151/107 (122) 99 Room Air EKG EKG [] Radiology/Procedures Radiology/Procedures [] Heart Score Risk Factors: Risk Factors: DM, Current or recent (<one month) smoker, HTN, HLP, family history of CAD, obesity. Risk Scores: Risk Factors: DM, Current or recent (<one month) smoker, HTN, HLP, family his tory of CAD, obesity. Course & Med Decision Making Course & Med Decision Making Pertinent Labs and Imaging studies reviewed. (See chart for details) This is a 24-year-old female patient presented to the ED today to be evaluated after making comments she will kill herself with a shaver. She arrives in the ED tearful and anxious. She is in the ED with a small son as well who was taken by the father. Patient has been upset and irritated in the ED constantly asking to leave. CBC CMP lipase with no acute findings, drug screen positive for marijuana use, alcohol level 168. Patient spoke to the guidance [facility], she was discharged home with a safety plan. Dragon Disclaimer Dragon Disclaimer This electronic medical record was generated, in whole or in part, using a voice recognition dictation system. Departure Departure: Impression: Primary Impression: Suicidal ideation Disposition: 01 DC HOME SELF CARE/HOMELESS Condition: STABLE Referrals: PCP,NO (PCP) Follow-up with the guidance Center Patient Instructions: Suicidal Feelings, How to Help Yourself Additional Instructions: You were evaluated in the emergency room for suicidal ideations. Please follow- up with the guidance Center. Come back to the ED at any point you have suicidal ideations. ZAAR MCKEON APRN Jan 16, 2020 15:58
[2020-01-16 16:12] LABS: BASO # 0.1 x10^3/uL (0.0-0.2); BASO % 1 % (0-3); EOS # 0.1 x10^3/uL (0.0-0.7); EOS % 2 % (0-3); HEMATOCRIT 33.2 % (36.0-47.0); HEMOGLOBIN 10.2 g/dL (12.0-15.5); LYMPH # 1.6 x10^3/uL (1.0-4.8); LYMPH % 24 % (24-48); MEAN CORPUSCULAR HEMOGLOBIN 26 pg (25-35); MEAN CORPUSCULAR HGB CONC 31 g/dL (31-37); MEAN CORPUSCULAR VOLUME 83 fL (79-100); MONO # 0.4 x10^3/uL (0.0-1.1); MONO % 6 % (0-9); NEUT # 4.4 x10^3uL (1.8-7.7); NEUT % 67 % (31-73); PLATELET COUNT 274 x10^3/uL (140-400); RED CELL DISTRIBUTION WIDTH 15.7 % (11.5-14.5); WHITE BLOOD COUNT 6.6 x10^3/uL (4.0-11.0)
[2020-01-16 16:20] LABS: CALCIUM 8.1 mg/dL (8.5-10.1); CLARITY,URINE CLEAR; COLOR,URINE PINK; GFR 68.1; GLUCOSE,URINE NEG (NEG); POTASSIUM 3.5 mmol/L (3.5-5.1)
[2020-01-16 16:21] LABS: BACTERIA,URINE 0 /HPF (0-FEW); BILIRUBIN,URINE NEG (NEG); NITRITE,URINE NEG (NEG); RBC,URINE 0 /HPF (0-2); SQUAMOUS EPITHELIAL CELL,UR OCC /LPF; UROBILINOGEN,URINE 0.2 mg/dL (0.2 mg/dL); WBC,URINE 0 /HPF (0-4)
[2020-01-16 16:22] LABS: BARBITURATES NEG (NEG); BENZODIAZEPINES NEG (NEG); CANNABINOIDS POS (NEG); COCAINE NEG (NEG); METHADONE NEG (NEG); OPIATES NEG (NEG); PHENCYCLIDINE NEG (NEG)
[2020-01-16 16:25] LABS: ETHANOL 168 mg/dL (0-10); SALIC 3.1 mg/dL (2.8-20.0)
[2020-01-16 16:26] LABS: ACETAMIN > 2.0 mcg/mL (10-30); AMPHETAMINE/METHAMPHETAMINE NEG (NEG)
[2020-01-16 16:27] LABS: ALBUMIN 3.7 g/dL (3.4-5.0); ALBUMIN/GLOBULIN RATIO 1.2 (1.0-1.7); MAGNESIUM 2.1 mg/dL (1.8-2.4); TOTAL BILIRUBIN 0.4 mg/dL (0.2-1.0); TOTAL PROTEIN 6.9 g/dL (6.4-8.2)
== END 2020-01-16 17:58 | disposition home or self-care (01) ==
LOC: ER 15:24
DX: R45.851 Suicidal ideations (principal); F41.9 Anxiety disorder, unspecified; I10 Essential (primary) hypertension; F17.210 Nicotine dependence, cigarettes, uncomplicated
CPT/HCPCS: 36415; 80053; 80307; 80329; 81001; 83690; 83735; 85025; 99285; G0480

== ENCOUNTER 2020-06-25 11:43 | Emergency (ER) | payer OTHER ==
[~2020-06-25] VITALS: Ht 157.5 cm; Wt 59.5 kg
--- NOTE | 2020-06-25 11:54 | PHYS DOC ---
Past History Past Medical History: Anxiety, Hypertension Additional Past Medical Histor: reports " I don't take medications" Past Surgical History: No Surgical History Smoking: Cigarettes Alcohol Use: Occasionally Drug Use: Marijuana General Adult HPI: HPI: Patient is a 24-year-old female coming in via EMS for SI. Patient [facility] at [facility] which she says she "wanted to talk to someone" but they sent her here due to concerns for suicidal ideation intoxication. Patient was taking medications for her bipolar depression but threw them down the toilet 2 weeks ago because she said they were working. Patient states she been taking them for 2 to 3 weeks prior to that. Patient has a history of cutting, denies any prior suicide attempts. Denies any ingestions or intoxication. Patient states she quit drinking and does not use recreational drugs or tobacco. Patient lives in apartment with her 4-year-old son. Denies any hallucinations. Review of Systems: Review of Systems: Constitutional: Denies fever or chills Eyes: Denies change in visual acuity HENT: Denies nasal congestion or sore throat Respiratory: Denies cough or shortness of breath Cardiovascular: Denies chest pain or edema GI: Denies abdominal pain, nausea, vomiting, bloody stools or diarrhea : Denies dysuria Musculoskeletal: Denies back pain or joint pain Integument: Denies rash Neurologic: Denies headache, focal weakness or sensory changes Endocrine: Denies polyuria or polydipsia Lymphatic: Denies swollen glands Psychiatric: Denies depression or anxiety Allergies: Allergies: Allergies Coded Allergies Type Severity Reaction Last Updated Verified No Known Allergies Allergy Unknown 10/19/15 Yes Physical Exam: PE: Constitutional: Well developed, well nourished, no acute distress, non-toxic appearance. [] HENT: Normocephalic, atraumatic, bilateral external ears normal, oropharynx moist, no oral exudates, nose normal. [] Eyes: PERRLA, EOMI, conjunctiva normal, no discharge. [] Neck: Normal range of motion, no tenderness, supple, no stridor. [] Cardiovascular:Heart rate regular rhythm, no murmur [] Lungs & Thorax: Bilateral breath sounds clear to auscultation [] Abdomen: Bowel sounds normal, soft, no tenderness, no masses, no pulsatile masses. [] Skin: Warm, dry, no erythema, no rash. [] Back: No tenderness, no CVA tenderness. [] Extremities: No tenderness, no cyanosis, no clubbing, ROM intact, no edema. [] Neurologic: Alert and oriented X 3, normal motor function, normal sensory function, no focal deficits noted. [] Psychologic: Affect normal, judgement normal, mood normal. [] EKG: EKG: [] Radiology/Procedures: Radiology/Procedures: [] Heart Score: C/O Chest Pain: No Risk Factors: Risk Factors: DM, Current or recent (<one month) smoker, HTN, HLP, family history of CAD, obesity. Risk Scores: Score 0 - 3: 2.5% MACE over next 6 weeks - Discharge Home Score 4 - 6: 20.3% MACE over next 6 weeks - Admit for Clinical Observation Score 7 - 10: 72.7% MACE over next 6 weeks - Early Invasive Strategies Course & Med Decision Making: Course & Med Decision Making PAT consulted for evaluation, okay to discharge and safety plan. Patient has a appointment in 3 days for medication evaluation with the guidance [facility]. Marla Disclaimer: Marla Disclaimer: This electronic medical record was generated, in whole or in part, using a voice recognition dictation system. Departure Departure: Impression: Primary Impression: Suicidal ideation Disposition: HOME / SELF CARE / HOMELESS Condition: STABLE Referrals: PCP,[place] (PCP) Patient Instructions: Depression, Adult Scripts Hydroxyzine Hcl (HYDROXYZINE HCL) 25 Mg Tablet 1 TAB PO PRN BID PRN for ANXIETY / AGITATION for 5 Days, #10 TAB 0 Refills Be careful as this medication may make you mildly tired. I recommend not driving on this medication or operating heavy machinery. Prov: SHELLY ARDON MD 06/25/20 SHELLY ARDON MD Jun 25, 2020 11:54
[2020-06-25 12:30] LABS: BASO # 0.1 x10^3/uL (0.0-0.2); BASO % 1 % (0-3); EOS # 0.1 x10^3/uL (0.0-0.7); EOS % 1 % (0-3); HEMATOCRIT 35.3 % (36.0-47.0); HEMOGLOBIN 11.2 g/dL (12.0-15.5); LYMPH # 1.6 x10^3/uL (1.0-4.8); LYMPH % 24 % (24-48); MEAN CORPUSCULAR HEMOGLOBIN 26 pg (25-35); MEAN CORPUSCULAR HGB CONC 32 g/dL (31-37); MEAN CORPUSCULAR VOLUME 81 fL (79-100); MONO # 0.5 x10^3/uL (0.0-1.1); MONO % 8 % (0-9); NEUT # 4.3 x10^3uL (1.8-7.7); NEUT % 65 % (31-73); PLATELET COUNT 250 x10^3/uL (140-400); RED BLOOD COUNT 4.35 x10^6/uL (3.50-5.40); RED CELL DISTRIBUTION WIDTH 17.9 % (11.5-14.5); WHITE BLOOD COUNT 6.6 x10^3/uL (4.0-11.0)
[2020-06-25 12:39] LABS: CALCIUM 8.8 mg/dL (8.5-10.1); GFR 68.1
[2020-06-25 12:43] LABS: ACETAMIN < 2 mcg/mL (10-30); SALIC < 2.8 mg/dL (2.8-20.0)
[2020-06-25 12:44] LABS: ETHANOL < 10 mg/dL (0-10)
[2020-06-25 12:54] LABS: ALBUMIN 3.7 g/dL (3.4-5.0); ALBUMIN/GLOBULIN RATIO 1.1 (1.0-1.7); TOTAL BILIRUBIN 0.8 mg/dL (0.2-1.0); TOTAL PROTEIN 7.2 g/dL (6.4-8.2)
[2020-06-25 12:55] LABS: AMPHETAMINE/METHAMPHETAMINE NEG (NEG); BARBITURATES NEG (NEG); BENZODIAZEPINES POS (NEG); CANNABINOIDS POS (NEG); COCAINE NEG (NEG); METHADONE NEG (NEG); OPIATES NEG (NEG); PHENCYCLIDINE NEG (NEG)
[2020-06-25] MEDS ORDERED: HYDR25TA PO (12:58)
[2020-06-25 13:01] LABS: BACTERIA,URINE MANY /HPF (0-FEW); BILIRUBIN,URINE NEG (NEG); CLARITY,URINE HAZY; COLOR,URINE YELLOW; GLUCOSE,URINE NEG (NEG); NITRITE,URINE POS (NEG); RBC,URINE 0 /HPF (0-2); SQUAMOUS EPITHELIAL CELL,UR FEW /LPF; UROBILINOGEN,URINE 0.2 mg/dL (0.2 mg/dL)
[2020-06-25 13:47] VITALS: BP 132/94
--- NOTE | 2020-06-28 16:54 | NUR ---
IP note: Pt lab results indicate pt has ESBL UTI. Seen in ED 06/25/2020, not treated with meds at that time. Attempt to notify to pt's home number of record reaches message stating that the number has been changed or disconnected. Contact made w/[facility] to try to obtain a working contact number. Pt was seen in person today, 06/28 @ 1320, but no other number provided to that facility. [facility] will have patient contact [facility] if they are able to contact her.
== END 2020-06-25 13:47 | disposition home or self-care (01) ==
LOC: ER 11:43
DX: R45.851 Suicidal ideations (principal); F41.9 Anxiety disorder, unspecified; I10 Essential (primary) hypertension; F31.9 Bipolar disorder, unspecified; F17.210 Nicotine dependence, cigarettes, uncomplicated
CPT/HCPCS: 36415; 80053; 80307; 80329; 81001; 81025; 85025; 87077; 87086; 87186; 99285; G0480

== ENCOUNTER 2020-07-01 21:07 | Emergency (ER) | payer OTHER ==
[~2020-07-01] VITALS: Ht 157.5 cm; Wt 59.5 kg
[~2020-07-01 21:07] MED LIST changes: +HYDR25TA PO
[2020-07-01] MEDS ORDERED: IV NORMAL SALINE 1,000ML 1,000 ML IV ONE (21:30)
[2020-07-01] MEDS ORDERED: ONDANSETRON PF 4 MG/2 ML VIAL. ONE (21:33)
[2020-07-01 21:53] LABS: BASO # 0.1 x10^3/uL (0.0-0.2); BASO % 0 % (0-3); EOS % 0 % (0-3); HEMATOCRIT 37.9 % (36.0-47.0); LYMPH # 1.7 x10^3/uL (1.0-4.8); LYMPH % 11 % (24-48); MEAN CORPUSCULAR HEMOGLOBIN 26 pg (25-35); MEAN CORPUSCULAR HGB CONC 32 g/dL (31-37); MEAN CORPUSCULAR VOLUME 82 fL (79-100); MONO % 7 % (0-9); NEUT # 11.9 x10^3uL (1.8-7.7); NEUT % 82 % (31-73); PLATELET COUNT 318 x10^3/uL (140-400); RED BLOOD COUNT 4.64 x10^6/uL (3.50-5.40); RED CELL DISTRIBUTION WIDTH 17.4 % (11.5-14.5); WHITE BLOOD COUNT 14.6 x10^3/uL (4.0-11.0)
--- NOTE | 2020-07-01 21:59 | PHYS DOC ---
Past History Past Medical History: Anxiety, Bipolar, Depression, Hypertension Additional Past Medical Histor: reports " I don't take medications" Past Surgical History: No Surgical History Smoking: Cigarettes Alcohol Use: None Drug Use: None, Marijuana Adult General HPI HPI Patient is a 24-year-old female presenting with complaints of abdominal pain nausea vomiting began approximately 2 hours prior to presentation. She reports eating a homemade Carne gideon burrito at 1300 hrs, approximately 6 hours after ingestion she started experiencing nausea with several episodes of nonbloody nonbilious emesis. Nothing known makes better, p.o. intake made worse. Timing of symptoms has been constant since onset. Denies previous abdominal surgeries, no recent sick contacts, travel, blurred vision, chest pain, shortness of breath, UTI-like symptoms. States that she does not take any medicines and has no chronic medical conditions for which she is being evaluated for. Denies drinking, tobacco, marijuana use, and other drug use. Denies changes in menstruation. On interview patient kept stating, "I do not feel well why can't you help me" but was reluctant to cooperate with history therefore HPI is somewhat limited. Review of Systems Review of Systems Fourteen body systems of review of systems have been reviewed. See HPI for pertinent positives and negative responses, other lima all other systems are negative, non-pertinent or non-contributory Current Medications Current Medications Current Medications Medications (Trade) Dose Ordered Sig/Holly Start Time Stop Time Status Last Admin Dose Admin Lorazepam (Ativan Inj) 2 mg STK-MED ONCE 07/01/20 21:36 07/01/20 21:36 DC Ondansetron HCl (Zofran) 4 mg STK-MED ONCE 07/01/20 21:33 07/01/20 21:33 DC Sodium Chloride 1,000 ml @ 1,000 mls/hr 1X ONCE 07/01/20 21:30 07/01/20 22:29 Allergies Allergies Allergies Coded Allergies Type Severity Reaction Last Updated Verified No Known Allergies Allergy Unknown 10/19/15 Yes Uncoded Allergies Type Severity Reaction Last Updated Verified ISOLATION Adverse Reaction Mild Unknown 06/28/20 Physical Exam Physical Exam Constitutional: Well developed, well nourished, no acute distress, non-toxic appearance. HENT: Normocephalic, atraumatic, bilateral external ears normal, oropharynx dry, no oral exudates, nose normal. Eyes: PERRLA, EOMI, conjunctiva normal, no discharge. Neck: Normal range of motion, no tenderness, supple, no stridor. Cardiovascular: Heart rate regular, sinus rhythm, no murmurs rubs or gallops Lungs & Thorax: Bilateral breath sounds clear to auscultation Abdomen: Bowel sounds normal, soft, generalized abdominal tenderness without guarding or rebound, no masses, no pulsatile masses. Nonsurgical abdomen, no peritoneal signs Skin: Warm, dry, no erythema, no rash. Back: No tenderness, no CVA tenderness. Extremities: No tenderness, no cyanosis, no clubbing, ROM intact, no edema. Neurologic: Alert and oriented X 3, grossly normal motor & sensory function, no focal deficits noted. Psychologic: Angry affect and mood Current Patient Data Vital Signs Vital Signs Date Time Temp Pulse Resp B/P (MAP) Pulse Ox O2 Delivery O2 Flow Rate FiO2 07/01/20 21:07 99.2 59 18 158/87 (110) 100 Room Air Vital Signs Date Time Temp Pulse Resp B/P (MAP) Pulse Ox O2 Delivery O2 Flow Rate FiO2 07/02/20 02:00 62 213/129 (157) 07/01/20 23:45 Room Air 07/01/20 22:45 96 07/01/20 21:07 99.2 18 Lab Results Laboratory Tests Test 07/01/20 21:22 07/02/20 01:05 07/02/20 01:20 White Blood Count 14.6 x10^3/uL Red Blood Count 4.64 x10^6/uL Hemoglobin 12.0 g/dL Hematocrit 37.9 % Mean Corpuscular Volume 82 fL Mean Corpuscular Hemoglobin 26 pg Mean Corpuscular Hemoglobin Concent 32 g/dL Red Cell Distribution Width 17.4 % Platelet Count 318 x10^3/uL Neutrophils (%) (Auto) 82 % Lymphocytes (%) (Auto) 11 % Monocytes (%) (Auto) 7 % Eosinophils (%) (Auto) 0 % Basophils (%) (Auto) 0 % Neutrophils # (Auto) 11.9 x10^3uL Lymphocytes # (Auto) 1.7 x10^3/uL Monocytes # (Auto) 1.0 x10^3/uL Eosinophils # (Auto) 0.0 x10^3/uL Basophils # (Auto) 0.1 x10^3/uL Sodium Level 142 mmol/L Potassium Level 3.3 mmol/L Chloride Level 104 mmol/L Carbon Dioxide Level 25 mmol/L Anion Gap 13 Blood Urea Nitrogen 16 mg/dL Creatinine 1.1 mg/dL Estimated GFR (Cockcroft-Gault) 61.0 BUN/Creatinine Ratio 15 Glucose Level 154 mg/dL Calcium Level 9.4 mg/dL Magnesium Level 1.6 mg/dL Total Bilirubin 1.1 mg/dL Aspartate Amino Transf (AST/SGOT) 14 U/L Alanine Aminotransferase (ALT/SGPT) 19 U/L Alkaline Phosphatase 69 U/L Troponin I Quantitative < 0.017 ng/mL Total Protein 7.9 g/dL Albumin 4.2 g/dL Albumin/Globulin Ratio 1.1 Lipase 140 U/L Salicylates Level < 2.8 mg/dL Salicylate Last Dose Date Unknown Salicylate Last Dose Time Unknown Acetaminophen Level < 2.0 mcg/mL Acetaminophen Last Dose Date Unknown Acetaminophen Last Dose Time Unknown Ethyl Alcohol Level < 10 mg/dL Urine Collection Type U cath Urine Color Yellow Urine Clarity Clear Urine pH 6.5 Urine Specific [place] >=1.030 Urine Protein >100 mg/dl Urine Glucose (UA) 100 mg/dL Urine Ketones (Stick) 40 mg/dL Urine Blood Mod Urine Nitrite Neg Urine Bilirubin Neg Urine Urobilinogen Dipstick 0.2 mg/dL Urine Leukocyte Esterase Neg Urine RBC Occ /HPF Urine WBC Occ /HPF Urine Squamous Epithelial Cells Occ /LPF Urine Bacteria 0 /HPF Urine Opiates Screen Neg Urine Methadone Screen Neg Urine Barbiturates Neg Urine Phencyclidine Screen Neg Urine Amphetamine/Methamphetamine Neg Urine Benzodiazepines Screen Neg Urine Cocaine Screen Neg Urine Cannabinoids Screen Pos Urine Ethyl Alcohol Neg Lactic Acid Level 2.4 mmol/L Current Medications Medications (Trade) Dose Ordered Sig/Holly Route PRN Reason Start Time Stop Time Status Last Admin Dose Admin Sodium Chloride 1,000 ml @ 1,000 mls/hr 1X ONCE IV 07/01/20 21:30 07/01/20 22:29 DC 07/02/20 01:28 Ondansetron HCl (Zofran) 4 mg STK-MED ONCE .ROUTE 07/01/20 21:33 07/01/20 21:33 DC Lorazepam (Ativan Inj) 2 mg STK-MED ONCE .ROUTE 07/01/20 21:36 07/01/20 21:36 DC Ondansetron HCl (Zofran) 4 mg 1X ONCE IVP 07/02/20 00:30 07/02/20 00:31 DC 07/01/20 21:33 Magnesium Sulfate 100 ml @ 100 mls/hr 1X ONCE IV 07/02/20 00:30 07/02/20 01:29 DC 07/02/20 01:27 Morphine Sulfate (Morphine 4mg Syringe) 4 mg 1X ONCE IM 07/02/20 00:30 07/02/20 00:31 DC Magnesium Sulfate 100 ml @ 100 mls/hr 1X ONCE IV 07/02/20 01:45 07/02/20 02:44 DC Potassium Chloride (Klor-Con) 40 meq 1X ONCE PO 07/02/20 01:45 07/02/20 01:46 DC Morphine Sulfate (Morphine 4mg Syringe) 4 mg 1X ONCE IV 07/02/20 01:30 07/02/20 02:56 DC 07/02/20 01:30 EKG EKG EKG ordered and interpreted by myself at 2155 as sinus rhythm at 79 bpm, prolonged QTC at 503 otherwise unremarkable intervals, no axis deviation, no obvious ischemic findings, no STEMI Repeat EKG obtained and interpreted by myself at 0125 hrs. as sinus rhythm at 60 bpm, prolonged QTC at 539 otherwise unremarkable intervals, no axis deviation, patient has nonspecific T wave changes in leads V4 and V5 that were not appreciated on prior exam, otherwise unremarkable. No STEMI Radiology/Procedures Radiology/Procedures EXAM: CHEST ONE VIEW. HISTORY: Ventricular fibrillation. COMPARISON: None. FINDINGS: A frontal view of the chest is obtained. There are no confluent infiltrates. There is no pneumothorax or pleural effusion. The heart is not enlarged. IMPRESSION: 1. No confluent infiltrates. Electronically signed by: Brandon Mccabe MD (07/01/2020 10:14 PM) [facility] Heart Score C/O Chest Pain: No HEART Score for Chest Pain: HEART Score for Chest Pain Response (Comments) Value History Slighlty/Non-Suspicious 0 ECG Nonspecific Repolarizatio 1 Age < 45 0 Risk Factors No Risk Factors 0 Troponin < Normal Limit 0 Total 1 Risk Factors: Risk Factors: DM, Current or recent (<one month) smoker, HTN, HLP, family history of CAD, obesity. Risk Scores: Risk Factors: DM, Current or recent (<one month) smoker, HTN, HLP, family history of CAD, obesity. Course & Med Decision Making Course & Med Decision Making Well-appearing hemodynamically stable patient came in with limited HPI significant for concern of p.o. food ingestion and patient with no known comorbid conditions her home medication use. Physical exam grossly without surgical and/or emergent findings IV established. 1 L normal saline administered. 4 mg Zofran given. Approximately 15 minutes after interventions above provided, main monitor notified patient went into ventricular tachycardia that then appeared to turn into torsades and eventually ventricular fibrillation Patient was immediately evaluated by myself and several RNs, patient was pulseless and unstable and so CPR was immediately started while pads were put in place 1 g IV magnesium started, pads were applied and after rhythm check after x1 round of compressions patient was in ventricular fibrillation with a thready pulse, patient unstable and so a 200 J defib administered with immediate resolution of arrhythmia and overall mentation Patient reassessed numerous times throughout ER visit, continued to be nauseous without emesis. Responded to IV fluid resuscitation. 40 meq KDur attempted to be given but patient refused There was question of recurrent 18 beat of ventricular tachycardia that self resolved, patient was asymptomatic throughout entire episode I contacted hospitalist at [facility] and discussed case at length, they agreed need for transfer to their cardiac unit for further management and cardiac consultation I updated patient on proposed plan of care, she is still nauseous but otherwise asymptomatic during this conversation with full capacity, she is amenable. All questions and concerns addressed prior to ER transport to [facility] for admission Critical Care Time This patient required critical care. Due to the fact that the patient required a significant amount of one on one physician - patient contact time, ordering and review of studies, arranging urgent treatment with development of a management plan, evaluation of patients response to treatment with frequent reassessments, and discussions with other providers this patient required 65 minutes of critical care time. Critical care time was indicated due to the inherent instab ility and/or potential for instability in this patient. The critical care time that is allocated to this patient is above and beyond any time spent on any other billable procedures performed on this patient. Dragon Disclaimer Dragon Disclaimer This electronic medical record was generated, in whole or in part, using a voice recognition dictation system. Departure Departure: Impression: Primary Impression: Ventricular fibrillation Additional Impressions: Hypomagnesemia Hypokalemia Prolonged QT interval Disposition: 02 [facility] ([facility]) Admitting Physician: Other (DR BLAIR) Condition: STABLE Referrals: PCP,NO (PCP) Problem Qualifiers TAMI MOBLEY DO Jul 01, 2020 21:59
[2020-07-01 22:00] LABS: CALCIUM 9.4 mg/dL (8.5-10.1); CREATININE 1.1 mg/dL (0.6-1.0); POTASSIUM 3.3 mmol/L (3.5-5.1)
[2020-07-01 22:06] LABS: ALBUMIN 4.2 g/dL (3.4-5.0); ALBUMIN/GLOBULIN RATIO 1.1 (1.0-1.7); TOTAL BILIRUBIN 1.1 mg/dL (0.2-1.0); TOTAL PROTEIN 7.9 g/dL (6.4-8.2)
--- NOTE | 2020-07-01 22:16 | RAD ---
EXAM: CHEST ONE VIEW. HISTORY: Ventricular fibrillation. COMPARISON: None. FINDINGS: A frontal view of the chest is obtained. There are no confluent infiltrates. There is no pneumothorax or pleural effusion. The heart is not en larged. IMPRESSION: 1. No confluent infiltrates. Electronically signed by: Brandon Mccabe MD (07/01/2020 10:14 PM) [facility]
--- NOTE | 2020-07-01 22:26 | EKG ---
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
[2020-07-02] MEDS ORDERED: MAGNESIUM SULFATE 1GM 100 ML IV ONE ×2 (00:30→01:45)
[2020-07-02] MEDS ORDERED: ONDANSETRON PF 4 MG/2 ML VIAL. IVP ONE (00:30)
[2020-07-02] MEDS ORDERED: MORPHINE SULFATE 4 MG/ML DISP.SYRIN. IM ONE (00:30)
[2020-07-02] MEDS ORDERED: MORPHINE SULFATE 4 MG/ML DISP.SYRIN. IV ONE (01:30)
--- NOTE | 2020-07-02 01:40 | EKG ---
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
[2020-07-02] MEDS ORDERED: POTASSIUM CHLORIDE 20 MEQ TABLET.ER. PO ONE (01:45)
[2020-07-02 01:58] LABS: BARBITURATES NEG (NEG); BENZODIAZEPINES NEG (NEG); CANNABINOIDS POS (NEG); COCAINE NEG (NEG); METHADONE NEG (NEG); OPIATES NEG (NEG); PHENCYCLIDINE NEG (NEG)
[2020-07-02 02:00] VITALS: BP 213/129
[2020-07-02 02:02] LABS: AMPHETAMINE/METHAMPHETAMINE NEG (NEG)
[2020-07-02 02:05] LABS: BILIRUBIN,URINE NEG (NEG); CLARITY,URINE CLEAR; COLOR,URINE YELLOW; GLUCOSE,URINE 100 mg/dL (NEG)
[2020-07-02 02:06] LABS: BACTERIA,URINE 0 /HPF (0-FEW); NITRITE,URINE NEG (NEG); RBC,URINE OCC /HPF (0-2); SQUAMOUS EPITHELIAL CELL,UR OCC /LPF; UROBILINOGEN,URINE 0.2 mg/dL (0.2 mg/dL); WBC,URINE OCC /HPF (0-4)
[2020-07-02 02:21] LABS: ACETAMIN < 2.0 mcg/mL (10-30); ETHANOL < 10 mg/dL (0-10); SALIC < 2.8 mg/dL (2.8-20.0)
== END 2020-07-02 02:15 | disposition short-term general hospital (02) ==
LOC: ER 21:07
DX: I49.01 Ventricular fibrillation (principal); E83.42 Hypomagnesemia; E87.6 Hypokalemia; I45.81 Long QT syndrome; F41.9 Anxiety disorder, unspecified; F31.9 Bipolar disorder, unspecified; I10 Essential (primary) hypertension; F17.210 Nicotine dependence, cigarettes, uncomplicated
CPT/HCPCS: 36415; 71045; 80053; 80307; 80329; 81001; 83605; 83690; 83735; 84484; 85025; 87040; 93005; 96374; 96375; 99285; G0480; J2270; J2405; J3475; J7030

== ENCOUNTER 2020-08-26 12:42 | Emergency (ER) | payer OTHER ==
[~2020-08-26] VITALS: Ht 157.5 cm; Wt 64.0 kg
[2020-08-26 12:55] VITALS: BP 181/100
--- NOTE | 2020-08-26 12:55 | PHYS DOC ---
Past History Past Medical History: Anxiety, Bipolar, Depression, Hypertension, Other Additional Past Medical Histor: reports " I don't take medications" Past Surgical History: No Surgical History Smoking: Cigarettes Alcohol Use: None Drug Use: None, Marijuana Adult General Chief Complaint Chief Complaint: MEDICATION REFILL [facility] HPI Patient is a 24-year-old female presenting with male tribunal member for acute anxiety. States she has history of this, previously was on Xanax and is here requesting refills. She has no primary care physician but reports going to the [facility] yesterday, states she was advised that she needs to come to [facility] ER "to refill and give me Klonopin". States she has history of depression and anxiety, reports her anxiety due to impending legal case regarding custody of child is pending in 7 days which has been worsening her ability to function at home. No HI/SI or self-harm, states she has otherwise been at baseline health but admits being more tearful and emotionally labile recently Review of Systems Review of Systems Fourteen body systems of review of systems have been reviewed. See HPI for pertinent positives and negative responses, other lima all other systems are negative, non-pertinent or non-contributory Allergies Allergies Allergies Coded Allergies Type Severity Reaction Last Updated Verified No Known Allergies Allergy Unknown 10/19/15 Yes Uncoded Allergies Type Severity Reaction Last Updated Verified ISOLATION Adverse Reaction Mild Unknown 06/28/20 Physical Exam Physical Exam Constitutional: Poor hygiene, in mild distress as she is tearful and anxious HENT: Normocephalic, atraumatic, bilateral external ears normal, oropharynx moist, no oral exudates, nose normal. Eyes: PERRLA, EOMI, conjunctiva normal, no discharge. Neck: Normal range of motion, no tenderness, supple, no stridor. Cardiovascular: Heart rate regular, sinus rhythm, no murmurs rubs or gallops Lungs & Thorax: Bilateral breath sounds clear to auscultation Abdomen: Bowel sounds normal, soft, no tenderness, no masses, no pulsatile masses. Nonsurgical abdomen, no peritoneal signs Skin: Warm, dry, no erythema, no rash. Back: No tenderness, no CVA tenderness. Extremities: No tenderness, no cyanosis, no clubbing, ROM intact, no edema. Neurologic: Alert and oriented X 3, grossly normal motor & sensory function, no focal deficits noted. Psychologic: Tearful affect, anxious mood, pressured speech Current Patient Data Vital Signs Vital Signs Date Time Temp Pulse Resp B/P (MAP) Pulse Ox O2 Delivery O2 Flow Rate FiO2 08/26/20 12:55 98.0 84 22 181/100 (127) 100 Vital Signs Date Time Temp Pulse Resp B/P (MAP) Pulse Ox O2 Delivery O2 Flow Rate FiO2 08/26/20 12:55 98.0 84 22 181/100 (127) 100 EKG EKG EKG ordered and interpreted by myself at 1322 hrs. as sinus rhythm at 75 bpm, unremarkable intervals, no axis deviation, no acute ischemic findings, no STEMI Radiology/Procedures Radiology/Procedures [] Heart Score C/O Chest Pain: No HEART Score for Chest Pain: HEART Score for Chest Pain Response (Comments) Value History Slighlty/Non-Suspicious 0 ECG Normal 0 Age < 45 0 Risk Factors No Risk Factors 0 Total 0 Risk Factors: Risk Factors: DM, Current or recent (<one month) smoker, HTN, HLP, family history of CAD, obesity. Risk Scores: Risk Factors: DM, Current or recent (<one month) smoker, HTN, HLP, family history of CAD, obesity. Course & Med Decision Making Course & Med Decision Making Hypertensive otherwise hemodynamically stable. HPI and physical exam nonconcern ing for any emergent or surgical issues Patient adamant about getting Xanax and/or Klonopin refilled. I advised her this is not standard of care and I was not willing to do this without any known diagnoses. [facility]acs reviewed with no recent prescription of benzodiazepine I educated her on alternative means of treatment such as therapy and SSRI etc., patient deferring and angry. I discussed this is not first-line care. She reports trying other alternative medication such as hydroxyzine and BuSpar "from my friends that did not work" 20 minutes were spent in room with patient and male tribunal member who were angry that I was not refilling benzodiazepine. I did offer benzodiazepine for acute anxiety/panic attack while in ER for which patient accepted Nonetheless, patient left prior to medication administration. They are upset that we are not giving her a prescription for her Klonopin. Efforts were made to verbally de-escalate situation and bring patient back into her room to discuss case further but patient left NITZA Gutiérrez Disclaimer Dragon Disclaimer This electronic medical record was generated, in whole or in part, using a voice recognition dictation system. Departure Departure: Impression: Primary Impression: Severe anxiety with panic Disposition: 07 LEFT AGAINST MEDICAL ADVICE Condition: GUARDED Referrals: PCP,NO (PCP) TAMI MOBLEY 24, 2021 12:55
== END 2020-08-26 13:47 | disposition left against medical advice (07) ==
LOC: ER 12:42
DX: F41.9 Anxiety disorder, unspecified (principal); F32.9 Major depressive disorder, single episode, unspecified; F17.210 Nicotine dependence, cigarettes, uncomplicated; I10 Essential (primary) hypertension; Z76.0 Encounter for issue of repeat prescription
CPT/HCPCS: 99281

== ENCOUNTER 2020-09-23 18:10 | Observation (INO) | payer OTHER ==
[~2020-09-23] VITALS: Ht 157.5 cm; Wt 64.0 kg
--- NOTE | 2020-09-23 18:34 | PHYS DOC ---
Past History Past Medical History: Anxiety, Depression, Hypertension, Migraines Additional Past Medical Histor: insomnia Past Surgical History: No Surgical History Smoking: Cigarettes Alcohol Use: Occasionally Drug Use: None, Marijuana General Adult EDM: Chief Complaint: ALTERED MENTAL STATUS HPI: HPI: "I took a pill...I just wanted to catch some fucking sleep...I got the pill from a friend.. " ". I am depressed because my got custody of my kid.. but ... I am not trying to fucking kill myself... ". I am just fucking pissed.. ".." Don't fucking let my ...fucking know about this fucking shit.. " He will just fucking use it against me.." Patient is a 24 year old female who presents with above hx and complaints of mental status change and depression over lost custody of her child. has gotten custody of child and moved to [place]. . Pt. reported moved here from [place]. Pt. initially found passed out in the front yard. Patient neighbors called for ambulance. Patient states she took her Remeron or somethin g like that at approximately 9:30 AM. Because she wanted to escape her depression about the loss of child. Patient still very confused and reports that she has had thoughts of killing herself.. but that was not her intent tonight. Review of Systems: Review of Systems: Constitutional: Denies fever or chills Eyes: Denies change in visual acuity HENT: Denies nasal congestion or sore throat Respiratory: Denies cough or shortness of breath Cardiovascular: Denies chest pain or edema GI: Denies abdominal pain, nausea, vomiting, bloody stools or diarrhea : Denies dysuria Musculoskeletal: Denies back pain or joint pain Integument: Denies rash Neurologic: Denies headache, focal weakness or sensory changes Endocrine: Denies polyuria or polydipsia Lymphatic: Denies swollen glands Psychiatric: Reports depression and anxiety Family History: Family History: Noncontributory to presentation Current Medications: Current Meds: See nursing for home meds Allergies: Allergies: Allergies Coded Allergies Type Severity Reaction Last Updated Verified No Known Allergies Allergy Unknown 10/19/15 Yes Uncoded Allergies Type Severity Reaction Last Updated Verified ISOLATION Adverse Reaction Mild Unknown 06/28/20 Physical Exam: PE: Constitutional:, no acute distress, overly sedated in appearance. [] HENT: Normocephalic, atraumatic, bilateral external ears normal, oropharynx moist, no oral exudates, nose normal. [] Eyes: PERRLA, EOMI, conjunctiva normal, no discharge. [] Neck: Normal range of motion, no tenderness, supple, no stridor. [] Cardiovascular: Tachycardia heart rate regular rhythm, no murmur [] Lungs & Thorax: Bilateral breath sounds equal apex with scattered wheezes on auscultation [] Abdomen: Bowel sounds normal, soft, no tenderness, no masses, no pulsatile masses. [] Skin: Warm, dry, no erythema, no rash. [] Back: No tenderness, no CVA tenderness. [] Extremities: No tenderness, no cyanosis, no clubbing, ROM intact, no edema. [] Neurologic: Alert and oriented X 3, moves all extremities on request, has distal sensory,, no focal deficits noted. DTRs +2 patella and brachial. Requires with noxious stimuli sedation to keep her awake to answer questions Psychologic: Affect angry, depressed,, judgement currently obviously impaired, mood normal. Denies suicidal ideation EKG: EKG: My interpretation EKG shows a sinus tachycardia at 111 bpm. There is some mild leftward axis. But no findings of acute STEMI of contralateral changes. Time of EKG is 1810 hrs. [] Radiology/Procedures: Radiology/Procedures: [][place] [address] IMAGING REPORT Signed PATIENT: MIKE CAMEJO ACCOUNT: [id number] : 1995 LOCATION: ER AGE: 24 SEX: F EXAM STATUS: REG ER ORD. PHYSICIAN: MARGARITA EVANS MD REASON: dyspnea PROCEDURE: PORTABLE CHEST 1V AP chest. HISTORY: Dyspnea AP view was taken of the chest. There is no pleural effusion. Lungs are clear. Heart is normal in size. IMPRESSION: 1. No acute chest disease. Electronically signed by: Juan Antonio Casey MD (09/23/2020 9:01 PM) [facility] DICTATED AND SIGNED BY: JUAN ANTONIO CASEY MD DATE: 09/23/202057 CC: MARGARITA EVANS MD; PCP,NO ~MTH0 0 Heart Score: C/O Chest Pain: N/A HEART Score for Chest Pain: HEART Score for Chest Pain Response (Comments) Value History Slighlty/Non-Suspicious 0 ECG Nonspecific Repolarizatio 1 Age < 45 0 Risk Factors 1 or 2 Risk Factors 1 Troponin < Normal Limit 0 Total 2 Risk Factors: Risk Factors: DM, Current or recent (<one month) smoker, HTN, HLP, family history of CAD, obesity. Risk Scores: Score 0 - 3: 2.5% MACE over next 6 weeks - Discharge Home Score 4 - 6: 20.3% MACE over next 6 weeks - Admit for Clinical Observation Score 7 - 10: 72.7% MACE over next 6 weeks - Early Invasive Strategies Course & Med Decision Making: Course & Med Decision Making Pertinent Labs and Imaging studies reviewed. (See chart for details) Discussed presentation, testing and tx. plan with Dr. Rico-. Advised to admit for altered mental status. and polysubstance abuse Impression: 1. Polysubstance abuse 2. Altered mental status 3. Drug screen + benzodiazepines, marijuana, and alcohol 4. Hypernatremia 146 [] Dragon Disclaimer: Dragon Disclaimer: This electronic medical record was generated, in whole or in part, using a voice recognition dictation system. Departure Departure: Referrals: PCP,BASIA (PCP) Marla Disclaimer This chart was dictated in whole or in part using Voice Recognition software in a busy, high-work load, and often noisy Emergency Department environment. It may contain unintended and wholly unrecognized errors or omissions. MARGARITA EVANS MD Sep 23, 2020 18:34
[2020-09-23] MEDS ORDERED: IV RINGERS SOLUTION,LACTATED 1,000 ML IV SCH (19:15)
[2020-09-23 19:24] LABS: BASO # 0.1 x10^3/uL (0.0-0.2); BASO % 1 % (0-3); EOS # 0.2 x10^3/uL (0.0-0.7); EOS % 3 % (0-3); HEMATOCRIT 38.4 % (36.0-47.0); HEMOGLOBIN 12.2 g/dL (12.0-15.5); LYMPH # 1.8 x10^3/uL (1.0-4.8); LYMPH % 22 % (24-48); MEAN CORPUSCULAR HEMOGLOBIN 26 pg (25-35); MEAN CORPUSCULAR HGB CONC 32 g/dL (31-37); MEAN CORPUSCULAR VOLUME 81 fL (79-100); MONO # 0.5 x10^3/uL (0.0-1.1); MONO % 6 % (0-9); NEUT # 5.4 x10^3uL (1.8-7.7); NEUT % 68 % (31-73); PLATELET COUNT 302 x10^3/uL (140-400); RED BLOOD COUNT 4.72 x10^6/uL (3.50-5.40); RED CELL DISTRIBUTION WIDTH 16.4 % (11.5-14.5); WHITE BLOOD COUNT 7.9 x10^3/uL (4.0-11.0)
[2020-09-23 19:37] LABS: GFR 68.1; POTASSIUM 3.8 mmol/L (3.5-5.1)
[2020-09-23 19:40] LABS: BARBITURATES NEG (NEG); BENZODIAZEPINES POS (NEG); CANNABINOIDS POS (NEG); COCAINE NEG (NEG); METHADONE NEG (NEG); OPIATES NEG (NEG); PHENCYCLIDINE NEG (NEG)
[2020-09-23 19:40] LABS: ACETAMIN < 2 mcg/mL (10-30); ETHANOL 119 mg/dL (0-10); SALIC 3.1 mg/dL (2.8-20.0)
[2020-09-23 19:41] LABS: AMPHETAMINE/METHAMPHETAMINE NEG (NEG)
[2020-09-23 19:45] LABS: BACTERIA,URINE 0 /HPF (0-FEW); BILIRUBIN,URINE NEG (NEG); CLARITY,URINE CLEAR; COLOR,URINE YELLOW; GLUCOSE,URINE NEG (NEG); NITRITE,URINE NEG (NEG); RBC,URINE RARE /HPF (0-2); UROBILINOGEN,URINE 0.2 mg/dL (0.2 mg/dL)
[2020-09-23 19:46] LABS: ALBUMIN 4.1 g/dL (3.4-5.0); DIRECT BILIRUBIN 0.1 mg/dL (0.0-0.2); MAGNESIUM 2.4 mg/dL (1.8-2.4); TOTAL BILIRUBIN 0.6 mg/dL (0.2-1.0)
[2020-09-23 19:46] LABS: SQUAMOUS EPITHELIAL CELL,UR FEW /LPF
--- NOTE | 2020-09-23 21:04 | RAD ---
AP chest. HISTORY: Dyspnea AP view was taken of the chest. There is no pleural effusion. Lungs are clear. Heart is normal in siz e. IMPRESSION: 1. No acute chest disease. Electronically signed by: Juan Antonio Casey MD (09/23/2020 9:01 PM) [facility]
[2020-09-23] MEDS ORDERED: IV RINGERS SOLUTION,LACTATED 1,000 ML IV ONE (21:15)
[2020-09-23] MEDS ORDERED: ONDANSETRON PF 4 MG/2 ML VIAL. IVP PRN (21:30)
[2020-09-23] MEDS ORDERED: FLUMAZENIL 0.5 MG/5 ML VIAL. IV ONE (21:30)
[2020-09-23] MEDS ORDERED: ACETAMINOPHEN 325 MG TABLET PO PRN (21:30)
--- NOTE | 2020-09-23 22:15 | NUR ---
The patient, MIKE CAMEJO, 24 y/o, F admitted by DEBBY JOHNSON MD, was given written information regarding hospital policies, unit procedures and contact persons. Valuables were checked and VITALS DOCUMENTED. PT IS BEING ADMITTED FOR AMS BUT PTS IS A&OX4 WITH ERRATIC AND TEARFUL BEHAVIOR. PT IS ON ROOM AIR ABLE TO AMBULATE TO TOILET WITH STANDBY ASSIST.
[2020-09-23 22:16] VITALS: BP 198/130
[2020-09-23 22:40] VITALS: BP 174/132
--- NOTE | 2020-09-23 23:03 | NUR ---
CALLED TO GIVE UPDATE ON PT AND ASK FOR SOMETHING TO HELP CALM HER DOWN. PT IS ERRATIC, CRYING AND VERBALLY AGGRESSIVE WITH STAFF. DIDN'T GIVE ANY NEW ORDER FOR MEDICATION.
--- NOTE | 2020-09-24 02:45 | NUR ---
PT STATED SHE MOVED FROM [place] TO BE WITH HIS CRISPIN FATHER. SHE ALSO STATED THAT HE IS ABUSIVE AND HAS TAKEN THE CHILD FROM HER. PT LIVES IN AN APARTMENT ALONE.
--- NOTE | 2020-09-24 02:47 | NUR ---
GOING THROUGH PTS BELONGINGS CAME ACROSS A SINGLE XANAX PILL, WRAPPED MARIJUANA ALSO A STICKY SUBSTANCE THAT MAY BE AN ILLEGAL SUBSTANCE ALSO. PT ADMITTED TO SMOKING AND TAKING A XANAX THIS EVENING.
[2020-09-24 06:08] VITALS: BP 170/110
[2020-09-24 06:11] LABS: BASO # 0.1 x10^3/uL (0.0-0.2); BASO % 1 % (0-3); EOS # 0.3 x10^3/uL (0.0-0.7); EOS % 4 % (0-3); HEMATOCRIT 35.7 % (36.0-47.0); HEMOGLOBIN 11.3 g/dL (12.0-15.5); LYMPH # 1.7 x10^3/uL (1.0-4.8); LYMPH % 26 % (24-48); MEAN CORPUSCULAR HEMOGLOBIN 26 pg (25-35); MEAN CORPUSCULAR HGB CONC 32 g/dL (31-37); MEAN CORPUSCULAR VOLUME 81 fL (79-100); MONO # 0.6 x10^3/uL (0.0-1.1); MONO % 10 % (0-9); NEUT # 3.7 x10^3uL (1.8-7.7); NEUT % 58 % (31-73); PLATELET COUNT 252 x10^3/uL (140-400); RED BLOOD COUNT 4.41 x10^6/uL (3.50-5.40); RED CELL DISTRIBUTION WIDTH 16.9 % (11.5-14.5); WHITE BLOOD COUNT 6.4 x10^3/uL (4.0-11.0)
[2020-09-24 06:17] LABS: GFR 68.1
[2020-09-24] MEDS ORDERED: IPRATRPIUM/ALBUTEROL 0.5/2.5MG 3 ML NEBU. NEB SCH (08:00)
--- NOTE | 2020-09-24 10:44 | NUR ---
Nursing note Pt discharged from hospital at 1043 accompanied by self via ambulation. pt given written and verbal instructions with verbal statement of understanding received. pt belongings returned to pt at time of discharge .
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
--- NOTE | 2020-09-27 12:41 | EKG ---
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
== END 2020-09-24 11:29 | disposition home or self-care (01) ==
LOC: ER 18:10 → INTOOBSV 21:25 → 1 SOUTH 21:25
PROVIDERS: ADMIT Hospitalist; ATTEND Hospitalist
DX: F19.10 Other psychoactive substance abuse, uncomplicated (principal); R41.82 Altered mental status, unspecified; F41.9 Anxiety disorder, unspecified; F32.9 Major depressive disorder, single episode, unspecified; I10 Essential (primary) hypertension; F17.210 Nicotine dependence, cigarettes, uncomplicated; G47.00 Insomnia, unspecified; E87.0 Hyperosmolality and hypernatremia; F13.90 Sedative, hypnotic, or anxiolytic use, unspecified, uncomplicated; Z72.89 Other problems related to lifestyle
CPT/HCPCS: 36415; 71045; 80048; 80076; 80307; 80329; 81001; 81025; 82550; 83690; 83735; 83880; 84443; 84484; 85025; 87077; 87086; 87186; 93005; 96361; 96374; 99285; G0378; G0480; J3490; J7120; G0379

== ENCOUNTER 2020-10-20 13:40 | Emergency (ER) | payer OTHER ==
[~2020-10-20] VITALS: Ht 309.9 cm; Wt 64.0 kg
[2020-10-20] MEDS ORDERED: ORPHENADRINE CITRATE 60 MG/2 ML VIAL. IM ONE (14:00)
[2020-10-20] MEDS ORDERED: KETOROLAC 60 MG/2 ML VIAL. IM ONE (14:00)
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
[2020-10-20 14:12] VITALS: BP 156/111
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
== END 2020-10-20 15:30 | disposition left against medical advice (07) ==
LOC: ER 13:40
DX: S01.91XA Laceration without foreign body of unspecified part of head, initial encounter (principal); S80.12XA Contusion of left lower leg, initial encounter; S80.11XA Contusion of right lower leg, initial encounter; M54.2 Cervicalgia; Z88.8 Allergy status to other drugs, medicaments and biological substances; Y08.89XA Assault by other specified means, initial encounter; Y93.89 Activity, other specified; Y92.89 Other specified places as the place of occurrence of the external cause; Y99.8 Other external cause status
CPT/HCPCS: 70450; 72125; 96372; 99285; J1885; J2360

== ENCOUNTER 2020-11-24 17:56 | Emergency (ER) | payer OTHER ==
[~2020-11-24] VITALS: Ht 157.5 cm; Wt 67.8 kg
[2020-11-24] MEDS ORDERED: AMLO-186 PO (18:48)
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
[2020-11-24] MEDS: IBUPROFEN 600 MG TABLET. PO ONE (19:02)
[2020-11-24] MEDS: amLODIPine BESYLATE 5 MG TABLET PO ONE (19:03)
[2020-11-24] MEDS: oxyCODONE/APAP 5/325 1 TAB TABLET PO ONE (19:04)
[2020-11-24 19:05] VITALS: BP 164/100
== END 2020-11-24 19:07 | disposition home or self-care (01) ==
LOC: ER 17:56
DX: M54.2 Cervicalgia (principal); I10 Essential (primary) hypertension; F41.9 Anxiety disorder, unspecified; F32.9 Major depressive disorder, single episode, unspecified; G43.909 Migraine, unspecified, not intractable, without status migrainosus; F17.210 Nicotine dependence, cigarettes, uncomplicated
CPT/HCPCS: 99284